=== PATIENT | female | born 1940 | race Caucasian/White ===

== ENCOUNTER 2019-04-21 09:17 | Outpatient (CLI) | payer MEDICARE, SELFPAY ==
[2019-04-21 09:29] LABS: Basophils Absolute Auto 0.02 K/mm3 (0.00-0.10); Basophils Percent Auto 0.4 % (0.0-1.0); Hemoglobin 9.8 g/dL (11.7-13.8); Immature Granulocyte Absolute 0.01 K/mm3 (0.00-0.00); Immature Granulocyte Percent A 0.2 % (0.0-0.0); Lymphocytes Absolute Auto 1.46 K/mm3 (1.10-4.50); Lymphocytes Percent Auto 27.3 % (18.0-42.0); Mean Corpuscular HGB Conc 30.6 g/dL (32.0-36.0); Mean Corpuscular Hemoglobin 23.3 pg (27.0-31.0); Mean Corpuscular Volume 76.2 fL (78.0-102.0); Mean Platelet Volume 8.5 fl (9.2-11.8); Monocytes Absolute Auto 0.41 K/mm3 (0.10-0.90); Monocytes Percent Auto 7.7 % (2.0-11.0); Neutrophils Absolute Auto 3.5 K/mm3 (1.7-7.2); Neutrophils Percent Auto 64.4 % (50.0-70.0); Platelet Count Result 281 K/mm3 (150-420); Red Cell Distribution Width 18.6 % (11.6-14.4); White Blood Count 5.4 K/mm3 (4.8-10.8)
[2019-04-21 09:47] LABS: INR 3.6; Prothrombin Time 35.3 Seconds (9.64-11.0)
[2019-04-21 10:58] LABS: Alanine Aminotransferase 23 U/L (14-59); Albumin Level 3.8 g/dL (3.4-5.0); Alkaline Phosphatase 105 U/L (46-116); Anion Gap 9.8 mmol/L (7-16); Aspartate Amino Transferase 23 U/L (15-37); Bilirubin,Total 0.3 mg/dL (0.00-1.00); Blood Urea Nitrogen 21 mg/dL (7-18); Calcium 8.8 mg/dL (8.5-10.1); Carbon Dioxide 31 mmol/L (21-32); Chloride 102 mmol/L (98-108); Estimated Glomerular Filt Rate 51; Glucose 90 mg/dL (70-99); Osmolality Calculated 291 mOsm/kg (285-295); Potassium 3.8 mmol/L (3.5-5.1); Sodium 139 mmol/L (136-145); Total Protein 7.5 g/dL (6.4-8.2)
== END 2019-04-21 09:18 | disposition home or self-care (01) ==
LOC: CHSLAB 09:19
PROVIDERS: PCP Family Medicine; Visit Provider Family Medicine
DX: Z79.01 Long term (current) use of anticoagulants (principal)
CPT/HCPCS: 36415; 80053; 85025; 85610

== ENCOUNTER 2019-04-25 07:00 | Outpatient (RCR) | payer MEDICARE, SELFPAY ==
[2019-03-25 12:27] LABS: INR 2.4; Prothrombin Time 23.7 Seconds (9.64-11.0)
[2019-04-25 07:22] LABS: INR 1.8; Prothrombin Time 18.6 Seconds (9.64-11.0)
== END 2019-06-23 23:59 | disposition home or self-care (01) ==
LOC: CHSLAB 07:00
DX: Z79.01 Long term (current) use of anticoagulants (principal)
CPT/HCPCS: 36415; 85610

== ENCOUNTER 2019-04-28 07:57 | Outpatient (CLI) | payer MEDICARE, SELFPAY ==
[2019-04-28 08:24] LABS: INR 1.5; Prothrombin Time 15.4 Seconds (9.64-11.0)
[2019-04-28 08:51] LABS: Thyroid Stimulating Hormone Reflex 13.39 u/IU/mL (0.36-3.74)
[2019-04-28 09:14] LABS: Free T4 Free Thyroxine Reflex 0.98 ng/dL (0.76-1.46)
== END 2019-04-28 07:58 | disposition home or self-care (01) ==
LOC: CHSLAB 07:59
PROVIDERS: PCP Family Medicine; Visit Provider Family Medicine
DX: D50.9 Iron deficiency anemia, unspecified (principal); E03.9 Hypothyroidism, unspecified; Z79.01 Long term (current) use of anticoagulants
CPT/HCPCS: 36415; 84439; 84443; 85610

== ENCOUNTER 2019-04-29 08:26 | Outpatient (CLI) | payer MEDICARE, SELFPAY ==
[2019-04-29 08:50] LABS: Occult Blood Negative (Negative)
== END 2019-04-29 08:27 | disposition home or self-care (01) ==
LOC: CHSLAB 08:28
PROVIDERS: PCP Family Medicine; Visit Provider Family Medicine
DX: D50.9 Iron deficiency anemia, unspecified (principal); E03.9 Hypothyroidism, unspecified
CPT/HCPCS: 82274

== ENCOUNTER 2019-06-10 13:30 | Outpatient (CLI) | payer MEDICARE, SELFPAY ==
--- NOTE | ~2019-06-10 | XR_ITS ---
EXAMINATION: XR hip LT 2V w AP pelvis INDICATION: Pain after fall TECHNIQUE: AP view the pelvis and two views of the left hip are obtained. 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 Orthopedic hardware in the femur is intact. Bone alignment is normal. There is no fracture. There is moderate to severe oste oarthritis of the right hip. IMPRESSION: 1. No acute osseous abnormality. Reviewed, dictated and finalized at location A.
== END 2019-06-10 13:31 | disposition home or self-care (01) ==
LOC: CHSIMG 13:35
PROVIDERS: PCP Family Medicine; Visit Provider Family Medicine
DX: G89.29 Other chronic pain (principal)
CPT/HCPCS: 73502

== ENCOUNTER 2019-06-24 11:22 | Outpatient (CLI) | payer MEDICARE, SELFPAY ==
[2019-06-24 11:59] LABS: Prothrombin Time 64.2 Seconds (9.64-11.0)
[2019-06-24 12:11] LABS: INR 6.6
[2019-06-24 12:39] LABS: Estimated Glomerular Filt Rate 54
== END 2019-06-24 11:23 | disposition home or self-care (01) ==
PROVIDERS: PCP Family Medicine
DX: Z79.01 Long term (current) use of anticoagulants (principal)
CPT/HCPCS: 36415; 82565; 85610

== ENCOUNTER 2019-08-08 08:50 | Outpatient (RCR) | payer MEDICARE, SELFPAY ==
--- NOTE | 2019-08-08 10:48 | PTOPEVAL ---
Thank you for referring Haley Rudd to [facility]. Please review, sign, date and return this plan of care BENJIE. I agree with and certify that the following plan of care is medically necessary. Referring Physician Date Admitting Provider: Attending Provider: PHYSICIAN NOT ON STAFF Referring Provider: *PT Outpatient Evaluation Start: 08/08/19 09:10 Freq: Status: Active Protocol: Document 08/08/19 09:13 CONNER (Rec: 08/08/19 09:41 CONNER [id number]) Therapy Assessment Status Assessment Status Assessment Status Evaluation Evaluation Information Problem Diagnosis low back pain Onset 05/16/19 Additional Evaluation Detail Oswestry= 54% disability Subjective Information Pt. reports that around the Query Text:As Reported By Patient/ end of april she fell at home. Family She reports she fell directly onto her low back. She reports that she has had increased pain since her fall. She states that she underwent MRI and xray but is unsure of what the results were. She describes pain across the low back and states that it stays localized to the low back. Pt. states that she underwent surgery on the lumbar spine in the past. she reports that her goal for therapy is to decrease her low back pain. Prior Level of Function Activity Level (Last 3 Months) Occupation retired Hand Dominance Right Activity of Daily Living Ability Independent Indoor/Home Mobility Independent Community Mobility Independent Stairs Ability Independent Functional Cognition (Planning, Shopping Independent , Taking Medications) Cooking Yes Cleaning Yes Laundry Yes Shopping Yes Driving Yes Pain Assessment Timing of Pain Assessment Timing of Pain Assessment Pre-Treatment Pain Scale Pain Scale Used Numeric (1 - 10) Self Report Pain Assessment Lower Back Reported Pain Level 6 Pain Description Aching,Dull Pain Radiation Right Leg Pain Frequency Chronic,Continuous Lowest Pain Intensity 6 Greatest Pain Intensity 8 Pain Aggravating Factors
--- NOTE | 2019-09-05 10:07 | PCPTNOTE ---
patient called and cancelled appt. DEYANIRA
== END 2019-09-07 10:18 | disposition home or self-care (01) ==
LOC: CHSPT 08:50
PROVIDERS: PCP Family Medicine
DX: M54.5 Low back pain (principal)
CPT/HCPCS: 97014; 97110; 97140; 97161; G0283

== ENCOUNTER 2019-09-07 09:58 | Outpatient (RCR) | payer MEDICARE, SELFPAY ==
[2019-06-27 10:26] LABS: INR 1.6; Prothrombin Time 16.7 Seconds (9.64-11.0)
[2019-06-30 10:15] LABS: INR 1.5; Prothrombin Time 15.5 Seconds (9.64-11.0)
[2019-07-04 10:26] LABS: INR 2.2; Prothrombin Time 22.2 Seconds (9.64-11.0)
[2019-07-12 10:47] LABS: INR 3.5; Prothrombin Time 34.2 Seconds (9.64-11.0)
[2019-07-15 11:00] LABS: Prothrombin Time 30.3 Seconds (9.64-11.0)
[2019-07-22 08:16] LABS: Prothrombin Time 49.6 Seconds (9.64-11.0)
[2019-07-22 08:42] LABS: INR 5.1
[2019-08-01 07:30] LABS: INR 1.8
[2019-08-04 07:40] LABS: INR 1.6; Prothrombin Time 16.1 Seconds (9.64-11.0)
[2019-08-11 12:55] LABS: INR 2.1; Prothrombin Time 21.2 Seconds (9.64-11.0)
[2019-08-23 11:20] LABS: INR 2.5; Prothrombin Time 25.4 Seconds (9.64-11.0)
[2019-09-07 10:25] LABS: INR 2.8; Prothrombin Time 28.1 Seconds (9.64-11.0)
== END 2019-09-25 23:59 | disposition home or self-care (01) ==
LOC: CHSLAB 09:58
PROVIDERS: PCP Family Medicine; Visit Provider Family Medicine
DX: Z79.01 Long term (current) use of anticoagulants (principal)
CPT/HCPCS: 36415; 85610

== ENCOUNTER 2019-11-25 09:51 | Outpatient (RCR) | payer MEDICARE, SELFPAY ==
[2019-09-26 07:37] LABS: INR 3.4; Prothrombin Time 33.3 Seconds (9.64-11.0)
[2019-10-11 08:54] LABS: INR 3.3; Prothrombin Time 32.6 Seconds (9.64-11.0)
[2019-10-20 11:03] LABS: INR 2.4; Prothrombin Time 24.1 Seconds (9.64-11.0)
[2019-11-03 09:28] LABS: INR 1.8; Prothrombin Time 18.7 Seconds (9.64-11.0)
[2019-11-16 07:41] LABS: INR 3.2; Prothrombin Time 31.7 Seconds (9.64-11.0)
[2019-11-25 10:17] LABS: INR 2.7; Prothrombin Time 26.8 Seconds (9.64-11.0)
== END 2019-12-25 23:59 | disposition home or self-care (01) ==
LOC: CHSLAB 09:51
PROVIDERS: PCP Family Medicine; Visit Provider Family Medicine
DX: Z79.01 Long term (current) use of anticoagulants (principal)
CPT/HCPCS: 36415; 85610

== ENCOUNTER 2019-11-29 13:57 | Outpatient (CLI) | payer MEDICARE, SELFPAY ==
--- NOTE | ~2019-11-29 | XR_ITS ---
EXAMINATION: XR knee RT min 4V EXAM DATE: 11/29/2019 14:37 INDICATION: Right knee pain. TECHNIQUE: Right knee frontal, crosstable lateral, orthogonal oblique projections for interpretation . [place] projection. There are no prior studies for comparison. FINDINGS: There is moderate right lateral tibiofemoral compartment, mild to moderate patellofemoral c ompartment primary osteoarthritis. There are no acute fractures or dislocations identified. There is no subcutaneous gas. There is small joint effusion. There are no radiopaque foreign bodies. IMPRESSION: Moderate right knee osteoarthritis, lateral tibiofemoral compartment most affected. Small effusion. Reviewed, dictated and finalized at location A. IMPRESSION: Moderate right knee osteoarthritis, lateral tibiofemoral compartmen t most affected. Small effusion.
== END 2019-11-29 13:58 | disposition home or self-care (01) ==
LOC: CHSIMG 13:59
PROVIDERS: PCP Family Medicine; Visit Provider Family Medicine
DX: M25.561 Pain in right knee (principal)
CPT/HCPCS: 73564

== ENCOUNTER 2019-12-09 07:30 | Outpatient (CLI) | payer MEDICARE, SELFPAY ==
[2019-12-09 08:02] LABS: INR 2.2; Prothrombin Time 22.2 Seconds (9.64-11.0)
[2019-12-09 09:03] LABS: Alanine Aminotransferase 25 U/L (14-59); Albumin Level 3.9 g/dL (3.4-5.0); Alkaline Phosphatase 105 U/L (46-116); Anion Gap 6 mmol/L (8-16); Aspartate Amino Transferase 19 U/L (15-37); Bilirubin,Total 0.3 mg/dL (0.00-1.00); Blood Urea Nitrogen 26 mg/dL (7-18); Calcium 9.1 mg/dL (8.5-10.1); Carbon Dioxide 32 mmol/L (21-32); Chloride 102 mmol/L (98-108); Estimated Glomerular Filt Rate 59; Glucose 93 mg/dL (70-99); Osmolality Calculated 294 mOsm/kg (285-295); Potassium 3.5 mmol/L (3.5-5.1); Sodium 140 mmol/L (136-145); Total Protein 7.3 g/dL (6.4-8.2)
== END 2019-12-09 07:31 | disposition home or self-care (01) ==
LOC: CHSLAB 07:32
PROVIDERS: PCP Family Medicine; Visit Provider Family Medicine
DX: E03.9 Hypothyroidism, unspecified (principal); I10 Essential (primary) hypertension; Z79.01 Long term (current) use of anticoagulants
CPT/HCPCS: 36415; 80053; 84439; 84443; 85610

== ENCOUNTER 2020-01-04 08:54 | Outpatient (RCR) | payer MEDICARE, SELFPAY ==
--- NOTE | 2020-01-04 09:57 | PTOPEVAL ---
Thank you for referring Haley Rudd to [facility].? The patient is scheduled to be seen for therapy? __3__x/week for 12 visits. Please review, sign, date and return this plan of care BENJIE. I agree with and certify that the following plan of care is medically necessary. Referring Physician Date Admitting Provider: Attending Provider: PHYSICIAN NOT ON STAFF Referring Provider: *PT Outpatient Evaluation Start: 01/04/20 08:56 Freq: Status: Active Protocol: Document 01/04/20 08:57 CONNER (Rec: 01/04/20 09:57 CONNER [email or web address]) Therapy Assessment Status Assessment Status Assessment Status Evaluation Evaluation Information Problem Diagnosis bilateral knee pain, right hip pain, lumbar stenosis, left hip pain Subjective Information Pt. describes general pain Query Text:As Reported By Patient/ throughout the low back and l. Family e. that has been on/off for years. She reports that she cannot sit or stand for extended periods of time. She notes that she can stand for about 10 minutes before pain becomes too intense and she needs to sit. She reports that sitting is less painful than standing. She reports that pain will wake her at night frequently. She reports that her goal for therapy is to be able to stand longer and get around without pain. Prior Level of Function Activity Level (Last 3 Months) Occupation retired Hand Dominance Right Activity of Daily Living Ability Independent Indoor/Home Mobility Independent Community Mobility Independent Stairs Ability Independent Functional Cognition (Planning, Shopping Independent , Taking Medications) Cooking Yes Cleaning Yes Laundry Yes Shopping Yes Driving Yes Pain Assessment Pain Scale Pain Scale Used Numeric (1 - 10) Self Report Pain Assessment Generalized Reported Pain Level 4 Pain Description Aching,Burning Pain Frequency Continuous Lowest Pain Intensity 4 Greatest Pain Intensity 7 Pain Aggravating Factors Exercise/Activity,Prolonged Position,Sitting,Walking,
== END 2020-02-02 18:00 | disposition home or self-care (01) ==
LOC: CHSPT 08:54
PROVIDERS: PCP Family Medicine
DX: M25.562 Pain in left knee (principal); M25.561 Pain in right knee; M16.11 Unilateral primary osteoarthritis, right hip; M48.062 Spinal stenosis, lumbar region with neurogenic claudication; M25.552 Pain in left hip
CPT/HCPCS: 36415; 80053; 84439; 84443; 85610; 97014; 97110; 97161; 97530; G0283

== ENCOUNTER 2020-01-09 10:08 | Outpatient (CLI) | payer MEDICARE, SELFPAY ==
[2020-01-09 11:28] LABS: Alanine Aminotransferase 29 U/L (14-59); Alkaline Phosphatase 96 U/L (46-116); Anion Gap 9 mmol/L (8-16); Aspartate Amino Transferase 24 U/L (15-37); Bilirubin,Total 0.3 mg/dL (0.00-1.00); Blood Urea Nitrogen 20 mg/dL (7-18); Calcium 9.4 mg/dL (8.5-10.1); Carbon Dioxide 32 mmol/L (21-32); Chloride 100 mmol/L (98-108); Estimated Glomerular Filt Rate 59; Glucose 83 mg/dL (70-99); Osmolality Calculated 293 mOsm/kg (285-295); Potassium 3.9 mmol/L (3.5-5.1); Sodium 141 mmol/L (136-145); Total Protein 7.5 g/dL (6.4-8.2)
[2020-01-09 11:45] LABS: Thyroid Stimulating Hormone Reflex 5.04 u/IU/mL (0.36-3.74)
[2020-01-09 11:46] LABS: Free T4 Free Thyroxine Reflex 1.41 ng/dL (0.76-1.46)
== END 2020-01-09 10:09 | disposition home or self-care (01) ==
LOC: CHSLAB 10:10
PROVIDERS: PCP Family Medicine; Visit Provider Family Medicine
DX: E03.9 Hypothyroidism, unspecified (principal); I10 Essential (primary) hypertension
CPT/HCPCS: 36415; 80053; 84439; 84443

== ENCOUNTER 2020-02-01 10:50 | Outpatient (RCR) | payer MEDICARE, SELFPAY ==
[2020-01-06 08:07] LABS: INR 1.9; Prothrombin Time 18.8 Seconds (9.64-11.0)
[2020-02-01 11:13] LABS: Prothrombin Time 21.3 Seconds (9.50-12.10)
== END 2020-04-05 23:59 | disposition home or self-care (01) ==
LOC: CHSLAB 10:50
PROVIDERS: PCP Family Medicine; Visit Provider Family Medicine
DX: Z79.01 Long term (current) use of anticoagulants (principal)
CPT/HCPCS: 36415; 85610

== ENCOUNTER 2020-03-02 09:32 | Outpatient (CLI) | payer MEDICARE, SELFPAY ==
[2020-03-02 09:44] LABS: Basophils Absolute Auto 0.05 K/mm3 (0.00-0.10); Basophils Percent Auto 0.8 % (0.0-1.0); Hematocrit 32.1 % (35.0-42.0); Hemoglobin 9.7 g/dL (11.7-13.8); Immature Granulocyte Absolute 0.02 K/mm3 (0.00-0.00); Immature Granulocyte Percent A 0.3 % (0.0-0.0); Lymphocytes Absolute Auto 1.61 K/mm3 (1.10-4.50); Lymphocytes Percent Auto 26.2 % (18.0-42.0); Mean Corpuscular HGB Conc 30.2 g/dL (32.0-36.0); Mean Corpuscular Volume 76.1 fL (78.0-102.0); Mean Platelet Volume 8.6 fl (9.2-11.8); Monocytes Absolute Auto 0.39 K/mm3 (0.10-0.90); Monocytes Percent Auto 6.4 % (2.0-11.0); Neutrophils Absolute Auto 4.1 K/mm3 (1.7-7.2); Neutrophils Percent Auto 66.3 % (50.0-70.0); Platelet Count Result 293 K/mm3 (150-420); Red Blood Count 4.22 M/mm3 (4.20-5.40); Red Cell Distribution Width 19.9 % (11.6-14.4); White Blood Count 6.1 K/mm3 (4.8-10.8)
[2020-03-02 11:08] LABS: Alanine Aminotransferase 24 U/L (14-59); Alkaline Phosphatase 95 U/L (46-116); Anion Gap 8 mmol/L (8-16); Aspartate Amino Transferase 20 U/L (15-37); Bilirubin,Total 0.5 mg/dL (0.00-1.00); Blood Urea Nitrogen 22 mg/dL (7-18); Calcium 9.2 mg/dL (8.5-10.1); Carbon Dioxide 30 mmol/L (21-32); Chloride 101 mmol/L (98-108); Estimated Glomerular Filt Rate 48; Ferritin 8 ng/mL (8-252); Free T4 Free Thyroxine 1.22 ng/dL (0.76-1.46); Glucose 133 mg/dL (70-99); Magnesium 1.5 mg/dL (1.8-2.4); Osmolality Calculated 293 mOsm/kg (285-295); Potassium 3.8 mmol/L (3.5-5.1); Sodium 139 mmol/L (136-145); Thyroid Stimulating Hormone 8.13 uIU/mL (0.36-3.74); Total Protein 7.5 g/dL (6.4-8.2); Vitamin B12 155 pg/mL (193-986)
[2020-03-08 02:45] LABS: Vitamin D 25 Hydroxy 23 ng/mL (30-100)
== END 2020-03-02 09:33 | disposition home or self-care (01) ==
LOC: CHSLAB 09:34
PROVIDERS: PCP Family Medicine; Visit Provider Internal Medicine Rheumatology
DX: R53.83 Other fatigue (principal); E55.9 Vitamin D deficiency, unspecified; D50.9 Iron deficiency anemia, unspecified; Z51.81 Encounter for therapeutic drug level monitoring
CPT/HCPCS: 36415; 80053; 82306; 82607; 82728; 82746; 83735; 84439; 84443; 85025

== ENCOUNTER 2020-03-12 09:17 | Outpatient (CLI) | payer MEDICARE, SELFPAY ==
[2020-03-12 10:37] LABS: Thyroid Stimulating Hormone Reflex 7.08 u/IU/mL (0.36-3.74)
[2020-03-12 11:29] LABS: Free T4 Free Thyroxine Reflex 1.18 ng/dL (0.76-1.46)
== END 2020-03-12 09:18 | disposition home or self-care (01) ==
LOC: CHSLAB 09:18
PROVIDERS: PCP Family Medicine; Visit Provider Family Medicine
DX: E03.9 Hypothyroidism, unspecified (principal)
CPT/HCPCS: 36415; 84439; 84443

== ENCOUNTER 2020-04-05 12:14 | Outpatient (CLI) | payer MEDICARE, SELFPAY ==
--- NOTE | 2020-04-05 12:30 | ECG_ITS ---
Measurements Intervals [place] Rate: 82 P: 39 CA: 174 QRS: 3 QRSD: 91 T: 30 QT: 373 QTc: 437 Interpretive Statements SINUS RHYTHM DELAYED PRECORDIAL R/S TRANSITION MINIMAL Q WAVES- HIGH LATERAL LEADS BORDERLINE ECG Electronically Signed On 04-05-2020 12:40:47 PROBE OPERATOR by Danielito Leon D.O.
== END 2020-04-05 12:15 | disposition home or self-care (01) ==
LOC: CHSLAB 12:17
PROVIDERS: PCP Family Medicine; Visit Provider Family Medicine
DX: Z01.818 Encounter for other preprocedural examination (principal)
CPT/HCPCS: 93005

== ENCOUNTER 2020-04-08 08:14 | Outpatient (CLI) | payer MEDICARE, SELFPAY | END 2020-04-08 08:15 | disposition home or self-care (01) | LOC: CHSLAB 08:16 | PROVIDERS: PCP Family Medicine; Visit Provider Family Medicine | DX: Z01.818 Encounter for other preprocedural examination (principal) | CPT/HCPCS: 87081 ==

== ENCOUNTER 2020-04-20 09:45 | Outpatient (RCR) | payer MEDICARE, SELFPAY ==
--- NOTE | 2020-04-19 11:18 | PTOPEVAL ---
Thank you for referring Haley Rudd to [facility] [place].? The patient is scheduled to be seen for therapy? ____x/week for ___ weeks. Please review, sign, date and return this plan of care BENJIE. I agree with and certify that the following plan of care is medically necessary. Referring Physician Date Admitting Provider: Attending Provider: BIRD SINGH Referring Provider: ASHLEY Outpatient Evaluation Start: 04/19/20 10:01 Freq: Status: Active Protocol: Document 04/19/20 10:01 ACR (Rec: 04/19/20 11:06 ACR [email or web address]) Therapy Assessment Status Assessment Status Assessment Status Evaluation Evaluation Information Problem Diagnosis R knee TKA Onset 04/17/20 Subjective Information Patient states she got a knee Query Text:As Reported By Patient/ replacement on the R on 04/17/20 Family and was hoping to be a swing bed, but her doctor would not allow it. Patient is having difficulty getting in and out of the car, standing up, going up and down the stairs, and walking for prolonged times. Patient reports she used a rollator before the surgery due to her knee hurting her so bad and used a cane before that. Patient states she is icing and elevating. She is also taking tramodal and hydrocodone for the pain. Prior Level of Function Activity Level (Last 3 Months) Occupation retired Hand Dominance Right Activity of Daily Living Ability Independent Indoor/Home Mobility Independent Community Mobility Independent Stairs Ability Independent Functional Cognition (Planning, Shopping Independent , Taking Medications) Cooking Yes Cleaning Yes Laundry Yes Shopping Yes Driving Yes Pain Assessment Timing of Pain Assessment Timing of Pain Assessment Assessment Pain Scale Pain Scale Used Numeric (1 - 10) Self Report Pain Assessment Right Knee(s) Reported Pain Level 9 Pain Description Aching,Dull Lowest Pain Intensity 7 Greatest Pain Intensity 10 Pain Score Pain Score 9: Self Report Interventions Used Interventions Used By Clinicians Activity or ADL's,Education, Exerci
--- NOTE | 2020-05-21 12:03 | PTOPEVAL ---
Thank you for referring Haley Rudd to [facility].? The patient is scheduled to be seen for therapy? ____x/week for ___ weeks. Please review, sign, date and return this plan of care BENJIE. I agree with and certify that the following plan of care is medically necessary. Referring Physician Date Admitting Provider: Attending Provider: BIRD SINGH Referring Provider: ASHLEY Outpatient Evaluation Start: 04/19/20 10:01 Freq: Status: Active Protocol: Document 05/21/20 11:08 [facility] (Rec: 05/21/20 12:02 [facility] [id number]) Therapy Assessment Status Assessment Status Assessment Status Re-evaluation Evaluation Information Problem Diagnosis R knee TKA Onset 04/17/20 Pain Assessment Timing of Pain Assessment Timing of Pain Assessment Assessment Pain Scale Pain Scale Used Numeric (1 - 10) Self Report Pain Assessment Right Knee(s) Reported Pain Level 7 Greatest Pain Intensity 10 Additional Pain Comments knee jt and lateral R knee pain Pain Score Pain Score 7: Self Report Interventions Used Interventions Used By Clinicians Activity or ADL's,Education, Exercise,Ice Lower Extremity Range of Motion Knee Range of Motion Right Knee Flexion Range of Motion - Active 85 Knee Flexion Range of Motion - Passive 106 Knee Extension Range of Motion - Active -7 Query Text: Knee Extension Range of Motion - Passive -2 Knee Range of Motion Comments patient reports pain in the lateral R knee with knee flexion. Palpation Assessment Palpation Palpation tenderness to palpation over the lateral R knee jt line. Gait Assessment Gait Assessment Additional Ambulation Comments patient ambulates into the clinic with a fww. she reports she has not attempted ambulation with a cane yet due to pain in the R knee. patient ambulates with stopping between steps with ambulation with cane, as well as, stance time and stride length of the R LE. General Exercise General Exercises Exercise Description - heel prop x 10 minutes Query Text:Record Sets, Reps, - heel slide with belt 5 Resistance, and Position minutes - PROM into knee flexion 5 minutes - passive overpressure of the R knee extension 5 minutes
--- NOTE | 2020-05-21 12:08 | PTOPEVAL ---
Thank you for referring Haley Rudd to [facility] [place].? The patient is scheduled to be seen for therapy? ____x/week for ___ weeks. Please review, sign, date and return this plan of care BENJIE. I agree with and certify that the following plan of care is medically necessary. Referring Physician Date Admitting Provider: Attending Provider: BIRD SINGH Referring Provider: ASHLEY Outpatient Evaluation Start: 04/19/20 10:01 Freq: Status: Active Protocol: Document 05/21/20 11:08 [facility] (Rec: 05/21/20 12:02 [facility] [id number]) Therapy Assessment Status Assessment Status Assessment Status Re-evaluation Evaluation Information Problem Diagnosis R knee TKA Onset 04/17/20 Pain Assessment Timing of Pain Assessment Timing of Pain Assessment Assessment Pain Scale Pain Scale Used Numeric (1 - 10) Self Report Pain Assessment Right Knee(s) Reported Pain Level 7 Greatest Pain Intensity 10 Additional Pain Comments knee jt and lateral R knee pain Pain Score Pain Score 7: Self Report Interventions Used Interventions Used By Clinicians Activity or ADL's,Education, Exercise,Ice Lower Extremity Range of Motion Knee Range of Motion Right Knee Flexion Range of Motion - Active 85 Knee Flexion Range of Motion - Passive 106 Knee Extension Range of Motion - Active -7 Query Text: Knee Extension Range of Motion - Passive -2 Knee Range of Motion Comments patient reports pain in the lateral R knee with knee flexion. Lower Extremity Muscle Strength Testing Knee Strength Right Knee Flexion Strength 3+ Fair + Knee Extension Strength 4 Good Palpation Assessment Palpation Palpation tenderness to palpation over the lateral R knee jt line. Gait Assessment Gait Assessment Additional Ambulation Comments patient ambulates into the clinic with a fww. she reports she has not attempted ambulation with a cane yet due to pain in the R knee. patient ambulates with stopping between steps with ambulation with cane, as well as, stance time and stride length of the R LE. General Exercise General Exercises Exercise Description - heel prop x 10 minutes Query Text:Record Sets, Reps, - heel slide with belt 5 Resistance, and Position minutes - PROM into knee flexion 5
--- NOTE | 2020-06-29 12:43 | PTOPEVAL ---
Thank you for referring Haley Rudd to [facility].? The patient is scheduled to be seen for therapy? ____x/week for ___ weeks. Please review, sign, date and return this plan of care BENJIE. I agree with and certify that the following plan of care is medically necessary. Referring Physician Date Admitting Provider: Attending Provider: BIRD SINGH Referring Provider: ASHLEY Outpatient Evaluation Start: 04/19/20 10:01 Freq: Status: Active Protocol: Document 06/29/20 11:01 ACR (Rec: 06/29/20 12:05 ACR [email or web address]) Therapy Assessment Status Assessment Status Assessment Status Discharge Evaluation Information Problem Diagnosis R TKA Onset 04/17/20 Subjective Information Patient states her R knee is Query Text:As Reported By Patient/ not the one bothering her, it Family is her L knee. She states that if her L knee wasn't bothering her so much, she would be able to do everything that she needs to do. Patient states she is driving. She states she is going back to the MD on the and is going to see if her L knee can be checked out. Pain Assessment Timing of Pain Assessment Timing of Pain Assessment Assessment Pain Scale Pain Scale Used Numeric (1 - 10) Self Report Pain Assessment Right Knee(s) Reported Pain Level 3 Greatest Pain Intensity 6 Pain Score Pain Score 3: Self Report Interventions Used Interventions Used By Clinicians Activity or ADL's,Education, Electrical Stimulation, Exercise,Ice Lower Extremity Range of Motion Knee Range of Motion Right Knee Flexion Range of Motion - Active 105 Knee Flexion Range of Motion - Passive 115 Knee Extension Range of Motion - Active -3 Query Text: Lower Extremity Muscle Strength Testing Knee Strength Right Knee Flexion Strength 4+ Good + Knee Extension Strength 4+ Good + Palpation Assessment Palpation Palpation Patient continues to be tender on the posterior knee and lateral joint line. R knee joint line: 48cm L knee joint line: 45 cm Gait Assessment Gait Assessment Additional Ambulation Comments patient ambulates into clinic with straight cane. She demonstrates decreased stance time on the L, decreased heel
== END 2020-06-29 14:18 | disposition home or self-care (01) ==
LOC: CHSPT 09:45
PROVIDERS: PCP Family Medicine
DX: M25.561 Pain in right knee (principal); M17.11 Unilateral primary osteoarthritis, right knee
CPT/HCPCS: 36415; 85610; 97014; 97016; 97110; 97140; 97161; 97530; G0283

== ENCOUNTER 2020-07-02 08:23 | Outpatient (RCR) | payer MEDICARE, SELFPAY ==
[2020-04-20 10:25] LABS: INR 1.1; Prothrombin Time 11.4 Seconds (9.50-12.10)
[2020-04-25 10:57] LABS: INR 1.5; Prothrombin Time 16.1 Seconds (9.50-12.10)
[2020-04-30 13:23] LABS: INR 2.6; Prothrombin Time 26.1 Seconds (9.50-12.10)
[2020-05-07 15:15] LABS: Prothrombin Time 49.8 Seconds (9.50-12.10)
[2020-05-16 14:37] LABS: INR 1.6; Prothrombin Time 17.1 Seconds (9.50-12.10)
[2020-07-02 08:45] LABS: INR 2.2; Prothrombin Time 22.2 Seconds (9.50-12.10)
== END 2020-07-19 23:59 | disposition home or self-care (01) ==
LOC: CHSLAB 08:23
PROVIDERS: PCP Family Medicine; Visit Provider Family Medicine
DX: Z79.01 Long term (current) use of anticoagulants (principal)
CPT/HCPCS: 36415; 85610

== ENCOUNTER 2020-07-13 08:07 | Outpatient (CLI) | payer MEDICARE, SELFPAY ==
[2020-07-13 09:34] LABS: Anion Gap 7 mmol/L (8-16); Blood Urea Nitrogen 19 mg/dL (7-18); Calcium 9.2 mg/dL (8.5-10.1); Carbon Dioxide 31 mmol/L (21-32); Chloride 101 mmol/L (98-108); Estimated Glomerular Filt Rate 47; Glucose 95 mg/dL (70-99); Osmolality Calculated 290 mOsm/kg (285-295); Sodium 139 mmol/L (136-145)
[2020-07-13 09:41] LABS: Free T4 Free Thyroxine Reflex 1.18 ng/dL (0.76-1.46); Thyroid Stimulating Hormone Reflex 4.03 u/IU/mL (0.36-3.74)
== END 2020-07-13 08:08 | disposition home or self-care (01) ==
LOC: CHSLAB 08:09
PROVIDERS: PCP Family Medicine; Visit Provider Family Medicine
DX: E03.9 Hypothyroidism, unspecified (principal); I10 Essential (primary) hypertension
CPT/HCPCS: 36415; 80048; 84439; 84443

== ENCOUNTER 2020-07-25 10:07 | Outpatient (CLI) | payer MEDICARE, SELFPAY ==
--- NOTE | ~2020-07-25 | DEXA_ITS ---
Bone Density Report Name: Haley Rudd Age: 80 Sex: Female Ethnicity: White Date of : 1940 Indication: osteopenia; parental hip fracture; asthma or emphysema; hysterectomy; Referring Provider: Samantha, Chary Mcneill Study: Bone densitometry was performed. Exam Date: July 25, 2020 Accession number: [id number] Bone Density: Region BMD T-score Z-score Classification AP Spine(L1, L2) 0.862 -1.1 1.4 Osteopenia Femoral Neck (Right) 0.670 -1.6 0.7 Osteopenia Total Hip (Right) 0.686 -2.1 0.0 Osteopenia World Health Organization criteria for BMD impression classify patients as: Normal (T-score at or above -1.0), Osteopenia (T-score between -1.0 and -2.5), or Osteoporosis (T-score at or below -2.5). 10-year Fracture Risk(1): Major Osteoporotic Fracture 22% Hip Fracture 12% Reported Risk Factors: [place] (), Neck BMD=0.670, BMI=37.4, parental fracture (1) FRAX(R) Version 3.08. Fracture probability calculated for an untreated patient. Fracture probability may be lower if the patient has received treatment. Previous Exams: Region Exam Age BMD T-score BMD Change BMD Change Date g/cm2 vs Baseline vs Previous Total Hip(Right) 07/25/2020 80 0.686 -2.1 -0.001 (-0.1%) -0.001 (-0.1%) 06/14/2014 73 0.687 -2.1 *Denotes significance at 95% confidence level, LSC for Total Hip = 0.027 g/cm2 # Denotes dissimilar scan types or analysis methods Clinical Information Provided by Patient: Parent has had a hip fracture Has the following medical conditions: Asthma or Emphysema, Hysterectomy No regular weight bearing exercise Number of children 3 Impression: The patient has low bone mass, based on the Right Total Hip T-score. The patient has an estimated ten-year risk of hip fracture of 12% and an estimated ten-year risk of major fracture of 22%, based on the WHO FRAX algorithm. The patient has risk factors, including: parental hip fracture. No significant bone loss was observed. Discussion: BONE DENSITY IS LOW AT ONE OR MORE SKELETAL SITES. THE PATIENT'S BMD AND CLINICAL RISK FACTORS CONTRIBUTE TO THIS PATIENT'S HIGH RISK OF FRACTURE. This patient's lowest T-score is low at one or more skeletal sites. It meets the World Health Organization's (WHO) criteria for ?low bone mass? (T-score between -1.0 and -2.5). The patient's 10-year risk of hip fracture and 10 year risk of a major osteoporotic fracture as calculated by FRAX exceeds the threshold where pharmacological therapy is recommended by the National Osteoporosis Foundation (NOF). However, all treatment decisio
--- NOTE | ~2020-07-25 | MM_ITS ---
EXAMINATION: MM screening [facility] BI w gaurang HISTORY: Screening mammogram TECHNIQUE: Craniocaudal and mediolateral oblique 3-D tomosynthesis images were obtained and synthetic 2-D images were generated. CAD analysis was submitted and interpreted. COMPARISON: 08/06/2018 bilateral diagnostic digital mammogram 07/21/2017, 11/02/2014 bilateral digital mammogram BREAST PARENCHYMAL COMPOSITION: There are scattered areas of fibroglandular density. FINDINGS: Status post reportedly benign right breast biopsy. Loss of the right breast. No nipple shadow is identified. There is no evidence of suspicious mass, ca lcification, or architectural distortion to suggest malignancy in either breast. There has been no bryson spicious interval change. IMPRESSION: 1. No mammographic evidence of malignancy. 2. Recommend routine screening mammography in one year. BI-RADS Category 2: Benign finding(s). Reviewed, dictated and finalized at location A.
== END 2020-07-25 10:08 | disposition home or self-care (01) ==
LOC: CHSIMG 10:08
PROVIDERS: PCP Family Medicine; Visit Provider Family Medicine
DX: Z12.31 Encounter for screening mammogram for malignant neoplasm of breast (principal); Z78.0 Asymptomatic menopausal state
CPT/HCPCS: 77063; 77067; 77080

== ENCOUNTER 2020-09-04 08:53 | Outpatient (RCR) | payer MEDICARE, SELFPAY ==
--- NOTE | 2020-09-04 09:55 | PTOPEVAL ---
Thank you for referring Haley Rudd to [facility].? The patient is scheduled to be seen for therapy? ____x/week for ___ weeks. Please review, sign, date and return this plan of care BENJIE. I agree with and certify that the following plan of care is medically necessary. Referring Physician Date Admitting Provider: Attending Provider: Anish San Referring Provider: ASHLEY Outpatient Evaluation Start: 09/04/20 08:55 Freq: Status: Active Protocol: Document 09/04/20 08:58 J (Rec: 09/04/20 09:54 Shaye [email or web address]) Therapy Assessment Status Assessment Status Assessment Status Evaluation Evaluation Information Problem Diagnosis L hip pain Onset 08/28/20 Additional Evaluation Detail LEFS = 80% functionally declined Subjective Information patient reports she has been Query Text:As Reported By Patient/ having pain in the L hip for Family about 3 weeks. she reports her pain will go along the side of her hip and up into her back. she reports the pain initially started running down the whole side of her L leg. she reports she has ahd x-rays of the L hip and reports no findings for her pain. she reports she has tried no injections to the hip. she reports she has increased pain with bending over to reach for things, walking, standing. she reports she is able to stand or walk for only 10 minutes. Prior Level of Function Comments Additional Prior Level of Function prior to the beginning of the Comments month, patient reports she always had some pain along the side of the L hip due to her previous surgeries. she reports she has been seeing [employer] for L sided lower back pain. patient has had a penelope in the L hip, and then had the L hip replaced. patient reports her last L hip surgery was back in 2008 or 2009. Pain Assessment Timing of Pain Assessment Timing of Pain Assessment Assessment Pain Scale Pain Scale Used Numeric (1 - 10) Self Repor
--- NOTE | 2020-09-27 09:10 | PTOPEVAL ---
Thank you for referring Haley Rudd to [facility].? The patient is scheduled to be seen for therapy? ____x/week for ___ weeks. Please review, sign, date and return this plan of care BENJIE. I agree with and certify that the following plan of care is medically necessary. Referring Physician Date Admitting Provider: Attending Provider: Anish San Referring Provider: ASHLEY Outpatient Evaluation Start: 09/04/20 08:55 Freq: Status: Active Protocol: Document 09/27/20 08:05 [facility] (Rec: 09/27/20 09:08 [facility] [email or web address]) Therapy Assessment Status Assessment Status Assessment Status Discharge Evaluation Information Problem Diagnosis L hip pain Onset 08/28/20 Additional Evaluation Detail LEFS = 72% functionally declined Subjective Information patient reports her back, L Query Text:As Reported By Patient/ hip, and L knee are very sore Family today. she reports lately she has had increased pain in the lower back and L knee compared to the L hip. she reports she does do exercises/HEP at home . she reports her follow up with the MD is on 10/11/20. Pain Assessment Timing of Pain Assessment Timing of Pain Assessment Assessment Pain Scale Pain Scale Used Numeric (1 - 10) Self Report Pain Assessment Left Knee(s) Reported Pain Level 6 Lower Back Reported Pain Level 7 Left Hip(s) Reported Pain Level 5 Pain Score Pain Score 7,5,6: Self Report Interventions Used Interventions Used By Clinicians Activity or ADL's,Education, Electrical Stimulation, Exercise,Heat Cervical and Lumbar ROM Lumbar ROM Lumbar Flexion Active [place] Query Text:Hands to: Lumbar Extension (0-40) 10 Query Text:Active in Degrees Lumbar Lateral Flexion Right (0-40) 15 Query Text:Active in Degrees Lumbar Lateral Flexion Left (0-40) 15 Query Text:Active in Degrees Lower Extremity Range of Motion Hip Range of Motion Left Hip Range of Motion Comments 100 degrees active hip flex 10 degrees hip IR 30 degrees hip ER Right Hip Range of Motion Comments patient presents with limited to 0 arom or prom L hip IR. patient presents with 100 degrees passive hip flex and 40 degrees hip ER. Lower Extremity Muscle Strength Testing Hip Strength Right Hip Flexi
== END 2020-09-27 17:29 | disposition home or self-care (01) ==
LOC: CHSPT 08:53
DX: M25.552 Pain in left hip (principal)
CPT/HCPCS: 97014; 97110; 97140; 97161; G0283

== ENCOUNTER 2020-09-04 09:55 | Outpatient (RCR) | payer MEDICARE, SELFPAY ==
[2020-08-06 08:41] LABS: INR 2.5; Prothrombin Time 25.1 Seconds (9.50-12.10)
[2020-09-04 10:16] LABS: INR 2.2; Prothrombin Time 22.4 Seconds (9.50-12.10)
== END 2020-11-04 23:59 | disposition home or self-care (01) ==
LOC: CHSLAB 09:55
PROVIDERS: PCP Family Medicine; Visit Provider Family Medicine
DX: Z79.01 Long term (current) use of anticoagulants (principal)
CPT/HCPCS: 36415; 85610

== ENCOUNTER 2020-11-03 07:49 | Outpatient (CLI) | payer MEDICARE, SELFPAY ==
[2020-11-03 08:02] LABS: Basophils Absolute Auto 0.04 K/mm3 (0.00-0.10); Basophils Percent Auto 0.8 % (0.0-1.0); Eosinophils Absolute Auto 0.05 K/mm3 (0.02-0.50); Hematocrit 45.3 % (35.0-42.0); Hemoglobin 14.9 g/dL (11.7-13.8); Immature Granulocyte Absolute 0.01 K/mm3 (0.00-0.00); Immature Granulocyte Percent A 0.2 % (0.0-0.0); Lymphocytes Absolute Auto 1.33 K/mm3 (1.10-4.50); Lymphocytes Percent Auto 25.9 % (18.0-42.0); Mean Corpuscular HGB Conc 32.9 g/dL (32.0-36.0); Mean Corpuscular Hemoglobin 33.9 pg (27.0-31.0); Mean Corpuscular Volume 103.2 fL (78.0-102.0); Monocytes Absolute Auto 0.38 K/mm3 (0.10-0.90); Monocytes Percent Auto 7.4 % (2.0-11.0); Neutrophils Absolute Auto 3.3 K/mm3 (1.7-7.2); Neutrophils Percent Auto 64.7 % (50.0-70.0); Platelet Count Result 217 K/mm3 (150-420); Red Blood Count 4.39 M/mm3 (4.20-5.40); Red Cell Distribution Width 14.6 % (11.6-14.4); White Blood Count 5.1 K/mm3 (4.8-10.8)
[2020-11-03 08:19] LABS: Prothrombin Time 20.5 Seconds (9.50-12.10)
[2020-11-03 08:49] LABS: Alanine Aminotransferase 39 U/L (14-59); Albumin Level 4.1 g/dL (3.4-5.0); Alkaline Phosphatase 99 U/L (46-116); Anion Gap 10 mmol/L (8-16); Aspartate Amino Transferase 30 U/L (15-37); Bilirubin,Total 0.5 mg/dL (0.00-1.00); Blood Urea Nitrogen 26 mg/dL (7-18); Calcium 8.9 mg/dL (8.5-10.1); Carbon Dioxide 32 mmol/L (21-32); Chloride 104 mmol/L (98-108); Cholesterol 237 mg/dL (0-200); Estimated Glomerular Filt Rate 44; Free T4 Free Thyroxine 1.15 ng/dL (0.76-1.46); Glucose 101 mg/dL (70-99); HDL Direct 68 mg/dL (40-60); LDL Cholesterol Calculated 153 mg/dL (<130); Osmolality Calculated 306 mOsm/kg (285-295); Potassium 3.6 mmol/L (3.5-5.1); Sodium 146 mmol/L (136-145); Thyroid Stimulating Hormone 6.51 uIU/mL (0.36-3.74); Total Protein 7.5 g/dL (6.4-8.2); Triglycerides 81 mg/dL (0-150)
== END 2020-11-03 07:50 | disposition home or self-care (01) ==
PROVIDERS: PCP Family Medicine; Visit Provider Family Medicine
DX: Z79.01 Long term (current) use of anticoagulants (principal); D50.9 Iron deficiency anemia, unspecified; I10 Essential (primary) hypertension; E03.9 Hypothyroidism, unspecified
CPT/HCPCS: 36415; 80053; 80061; 84439; 84443; 85025; 85610

== ENCOUNTER 2020-11-09 11:34 | Outpatient (CLI) | payer MEDICARE, SELFPAY | END 2020-11-09 11:35 | disposition home or self-care (01) | LOC: CHSLAB 11:40 | PROVIDERS: PCP Family Medicine | DX: Z01.812 Encounter for preprocedural laboratory examination (principal) | CPT/HCPCS: 87081 ==

== ENCOUNTER 2020-12-21 07:30 | Outpatient (RCR) | payer MEDICARE, SELFPAY ==
[2020-10-04 10:08] LABS: INR 2.2; Prothrombin Time 22.3 Seconds (9.50-12.10)
[2020-12-06 10:22] LABS: INR 3.3; Prothrombin Time 33.1 Seconds (9.50-12.10)
[2020-12-21 07:50] LABS: INR 2.6
== END 2021-01-02 23:59 | disposition home or self-care (01) ==
LOC: CHSLAB 07:30
PROVIDERS: PCP Family Medicine; Visit Provider Family Medicine
DX: Z79.01 Long term (current) use of anticoagulants (principal)
CPT/HCPCS: 36415; 85610

== ENCOUNTER 2021-01-04 08:07 | Outpatient (RCR) | payer MEDICARE, SELFPAY ==
[2021-01-04 08:32] LABS: INR 2.1
== END 2021-04-04 23:59 | disposition home or self-care (01) ==
LOC: CHSLAB 08:07
PROVIDERS: PCP Family Medicine; Visit Provider Family Medicine
DX: Z79.01 Long term (current) use of anticoagulants (principal)
CPT/HCPCS: 36415; 85610

== ENCOUNTER 2021-01-09 05:37 | Emergency (ER) | payer MEDICARE, SELFPAY ==
--- NOTE | ~2021-01-09 | CT_ITS ---
EXAMINATION: CT diagnostic chest wo con EXAM DATE: 01/09/2021 06:57 INDICATION: right lateral chest pleuritic pain for 5 days. TECHNIQUE: Spiral CT of the chest without contrast. Axial, coronal and sagittal images of the chest were reviewed. Coronal maximum intensity pixel images of chest reviewed. The dose-length product ( DLP) for this examination was 671.61 mGy-cm. The exposure was tailored according to patient size (au to mA exposure control), and iterative reconstruction (ASIR) was used as additional dose reduction [place]. Comparison is made to prior examination from 06/15/2014. FINDINGS: There is acute right 6th rib fracture anterolaterally. There is right lower lobe 5 x 8 mm n odule, not significant changed compared to 2015. There is right upper lobe 3.5 mm nodule on image 27. Small endobronchial nodule versus debris measuring about 5 mm with small amount of calcification noah pected in left mainstem bronchus, image 42. There is tortuosity of the aorta. Linear basilar scarr ing or atelectasis. Mild emphysema and hyperinflation. There is moderate-sized sliding gastroesophage al hiatal hernia. There are no pleural or pericardial effusions. There is no mediastinal, hilar or axillary lymphadenopathy. There is no pneumothorax. Heart normal in size. There is mild cisneros ry arterial calcification, arterial sclerosis. Right liver lobe 1.4 cm cyst medially. There is mode rate scoliosis. Lumbar fusion hardware. IMPRESSION: 1. New small pulmonary and endobronchial nodules, most likely granuloma and debris respectively but 6 month follow-up chest CT without contrast is recommended. 2. Mild emphysema and hyperinflation. 3. Moderate gastroesophageal hiatal hernia. 4. Acute right 6th rib fracture which could account for patient's symptoms. Reviewed, dictated and finalized at location A. R MACHINE FEEDER IMPRESSION: 1. New small pulmonary and endobronchial nodules, most likely granuloma and de bris respectively but 6 month follow-up chest CT without contrast is recommende d. 2. Mild emphysema and hyperinflation. 3. Moderate gastroesophageal hiatal hernia. 4. Acute right 6th rib fracture which could account for patient's symptoms.
[2021-01-09 05:52] VITALS: BP 139/86; PULSE 72; RESP 18; TEMP 36.2; O2SAT 96
--- NOTE | 2021-01-09 06:24 | ED.GENADULT ---
HPI - General Adult General Source: patient and family Mode of arrival: wheelchair Limitations: no limitations History of Present Illness complaint: pleuritic right rib pain x 5 days. Onset (ago): day(s) (5) Location: chest Radiation: non-radiation Severity: mild Severity scale (1-10): 6 Quality: aching and sharp Pain Consistency: constant Relieving factors: medication Exacerbating factors: movement Associated symptoms: denies other symptoms Treatments prior to arrival: none Related Data Allergies Allergy/AdvReac Type Severity Reaction Status Date / Time egg Allergy Unknown Verified 09/14/18 15:53 gabapentin Allergy Unknown Verified 03/03/16 08:59 lactose Allergy Unknown BLOTTING Verified 09/21/18 13:04 pregabalin Allergy Unknown Verified 09/14/18 15:10 Review of Systems Review of Systems: All systems reviewed & are unremarkable except as noted in HPI and below PMFSH Past Medical History Medical History Pleurisy without effusion Family History Family History Father Diabetes mellitus Family history of cardiovascular disease Cerebrovascular accident Mother Hypertension Sibling Family history of malignant neoplasm Other Family history of arthritis Family history of gout Social History Social History Smoking status: Never smoker Alcohol intake: current Exam Const: General: cooperative and no acute distress Nutritional Appearance: overweight Orientation/consciousness: patient oriented x3 Limitations: no limitations HENMT: Head: normal to inspection, normocephalic and atraumatic Ears: hearing grossly normal bilaterally, external ears normal, TM's normal bilaterally, TM normal on the right and TM normal on the left General nose exam: Normal external nose present and Normal nares present Face and sinus: normal facial exam Mouth: Yes Normal oral and palatal mucosa present and Yes moist mucous membranes Throat: posterior oropharynx normal Eyes: General: appearance normal, both eyes and all related structures Visual So: normal visual so by confrontation Eyelids: eyelids normal Sclera: sclerae normal Cornea: corneas normal Pupils: Equal, round and reactive pupils present EOM: EOMs intact bilaterally Neck: Neck: normal visual inspection, full ROM and no lymphadenopathy Chest: Chest palpation & inspection: normal inspection of the chest and other (mildly tender right cj-lateral chest with no acute redness, swelling or) Resp: Effort & Inspection: normal respiratory effort Auscultation: rhonchi Cardio: Jugular venous distension: no JVD Palpation: normal PMI Rate: regular rate Rhythm: regular rhythm Heart sounds: S1 normal heart sound present and S2 normal heart sound present Peripheral pulses: Peripheral pulses 2+ throughout GI: Inspection: normal to inspection GI Palp: No abdominal tenderness and Yes Soft to palpation Percussion: Yes normal to percussion Auscultation: normal bowel sounds : General: Yes no CVA tenderness Back/Spine/Pelvis: Back: no CVA tenderness Thoracic/Lumbar Spine: thoracic and lumbar spine normal to inspection Skin: General skin exam: normal color Rashes: no rashes Trauma: no lacerations or abrasions Wounds: no wounds Neuro: General: oriented to person and patient oriented x3 Cranial nerves: Yes CN's II-XII intact bilaterally, Yes Bilaterally intact EOM present and Yes Nystagmus not present Cognition (Neuro): normal cognition Speech: No normal speech Gait exam (Neuro): Unable to assess gait Sensory Exam: normal sensation Extrem: General: normal to inspection and full ROM Psych: Appearance: grossly normal and well kempt Attitude: cooperative Thought process: Normal thought process present Course Course Emergency Course: Pt was stable in the ED, less painful. Reevaluation(
[2021-01-09] MEDS: KETOROLAC (*BKC) 60 MG/2 ML VIAL IM (06:31)
--- NOTE | 2021-01-09 06:46 | PC.NURSE ---
Pt. to Ct via w/c at this hour. 0 change in condition.
--- NOTE | 2021-01-09 06:57 | PC.NURSE ---
Pt returned from X-Ray at this hour.
--- NOTE | 2021-01-09 07:22 | PC.NURSE ---
Pt. report to Clarissa BLEVINS. awaiting D/C orders some change in condition pain change to 6 from 8 at rest.
[2021-01-09 07:25] VITALS: BP 158/83; PULSE 65; RESP 18; TEMP 36.3; O2SAT 95
== END 2021-01-09 07:43 | disposition home or self-care (01) ==
PROVIDERS: Emergency Provider Emergency Medicine; PCP Family Medicine
DX: R09.1 Pleurisy (principal); S22.31XA Fracture of one rib, right side, initial encounter for closed fracture
CPT/HCPCS: 71250; 96372; 99284; J1885

== ENCOUNTER 2021-01-18 12:17 | Outpatient (CLI) | payer MEDICARE, SELFPAY ==
[2021-01-18 12:28] LABS: Basophils Absolute Auto 0.05 K/mm3 (0.00-0.10); Basophils Percent Auto 0.8 % (0.0-1.0); Eosinophils Absolute Auto 0.04 K/mm3 (0.02-0.50); Eosinophils Percent Auto 0.7 % (1.0-6.0); Hematocrit 46.1 % (35.0-42.0); Hemoglobin 15.8 g/dL (11.7-13.8); Immature Granulocyte Absolute 0.02 K/mm3 (0.00-0.00); Immature Granulocyte Percent A 0.3 % (0.0-0.0); Lymphocytes Absolute Auto 1.67 K/mm3 (1.10-4.50); Lymphocytes Percent Auto 27.5 % (18.0-42.0); Mean Corpuscular HGB Conc 34.3 g/dL (32.0-36.0); Mean Corpuscular Hemoglobin 34.3 pg (27.0-31.0); Mean Corpuscular Volume 100.2 fL (78.0-102.0); Mean Platelet Volume 9.1 fl (9.2-11.8); Monocytes Percent Auto 6.6 % (2.0-11.0); Neutrophils Absolute Auto 3.9 K/mm3 (1.7-7.2); Neutrophils Percent Auto 64.1 % (50.0-70.0); Platelet Count Result 231 K/mm3 (150-420); Red Cell Distribution Width 13.9 % (11.6-14.4); White Blood Count 6.1 K/mm3 (4.8-10.8)
[2021-01-18 12:58] LABS: INR 2.2; Prothrombin Time 22.4 Seconds (9.50-12.10)
[2021-01-18 13:58] LABS: Alanine Aminotransferase 47 U/L (14-59); Albumin Level 4.1 g/dL (3.4-5.0); Alkaline Phosphatase 113 U/L (46-116); Anion Gap 9 mmol/L (8-16); Aspartate Amino Transferase 29 U/L (15-37); Bilirubin,Total 0.5 mg/dL (0.00-1.00); Blood Urea Nitrogen 22 mg/dL (7-18); Carbon Dioxide 33 mmol/L (21-32); Chloride 103 mmol/L (98-108); Estimated Glomerular Filt Rate 42; Free T4 Free Thyroxine 1.19 ng/dL (0.76-1.46); Glucose 99 mg/dL (70-99); Osmolality Calculated 303 mOsm/kg (285-295); Potassium 3.7 mmol/L (3.5-5.1); Sodium 145 mmol/L (136-145); Total Protein 7.8 g/dL (6.4-8.2)
== END 2021-01-18 12:18 | disposition home or self-care (01) ==
PROVIDERS: PCP Family Medicine; Visit Provider Family Medicine
DX: Z79.01 Long term (current) use of anticoagulants (principal); D50.9 Iron deficiency anemia, unspecified; I10 Essential (primary) hypertension; E03.9 Hypothyroidism, unspecified
CPT/HCPCS: 36415; 80053; 84439; 84443; 85025; 85610

== ENCOUNTER 2021-01-19 07:00 | Outpatient (CLI) | payer MEDICARE, SELFPAY ==
[2021-01-19 07:54] LABS: Cholesterol 259 mg/dL (0-200); HDL Direct 72 mg/dL (40-60); LDL Cholesterol Calculated 174 mg/dL (<130); Triglycerides 64 mg/dL (0-150)
== END 2021-01-19 07:01 | disposition home or self-care (01) ==
LOC: CHSLAB 07:02
PROVIDERS: PCP Family Medicine; Visit Provider Family Medicine
DX: D50.9 Iron deficiency anemia, unspecified (principal); E03.9 Hypothyroidism, unspecified; I10 Essential (primary) hypertension
CPT/HCPCS: 36415; 80061

== ENCOUNTER 2021-02-22 09:07 | Outpatient (CLI) | payer MEDICARE, SELFPAY ==
[2021-02-22 09:24] LABS: Basophils Absolute Auto 0.03 K/mm3 (0.00-0.10); Basophils Percent Auto 0.5 % (0.0-1.0); Hematocrit 45.2 % (35.0-42.0); Hemoglobin 14.9 g/dL (11.7-13.8); Immature Granulocyte Absolute 0.02 K/mm3 (0.00-0.00); Immature Granulocyte Percent A 0.3 % (0.0-0.0); Lymphocytes Absolute Auto 1.33 K/mm3 (1.10-4.50); Lymphocytes Percent Auto 20.1 % (18.0-42.0); Mean Corpuscular Hemoglobin 34.2 pg (27.0-31.0); Mean Corpuscular Volume 103.7 fL (78.0-102.0); Mean Platelet Volume 8.9 fl (9.2-11.8); Monocytes Absolute Auto 0.45 K/mm3 (0.10-0.90); Monocytes Percent Auto 6.8 % (2.0-11.0); Neutrophils Absolute Auto 4.8 K/mm3 (1.7-7.2); Neutrophils Percent Auto 72.3 % (50.0-70.0); Platelet Count Result 222 K/mm3 (150-420); Red Blood Count 4.36 M/mm3 (4.20-5.40); Red Cell Distribution Width 13.9 % (11.6-14.4); White Blood Count 6.6 K/mm3 (4.8-10.8)
[2021-02-22 10:53] LABS: Ferritin 101 ng/mL (8-252); Iron 85 ug/dL (50-170); Percent Iron Saturation 23 % (12-57)
[2021-02-22 12:28] LABS: INR 1.9; Prothrombin Time 19.4 Seconds (9.50-12.10)
[2021-02-27 02:41] LABS: Transferrin 299 mg/dL (188-341)
== END 2021-02-22 09:08 | disposition home or self-care (01) ==
PROVIDERS: PCP Family Medicine; Visit Provider Family Medicine
DX: Z79.01 Long term (current) use of anticoagulants (principal); R79.89 Other specified abnormal findings of blood chemistry
CPT/HCPCS: 36415; 82728; 83540; 83550; 84466; 85025; 85610

== ENCOUNTER 2021-04-23 08:46 | Outpatient (RCR) | payer MEDICARE, SELFPAY ==
--- NOTE | 2021-04-23 13:19 | PTOPEVAL ---
Thank you for referring Haley Rudd to [facility].? The patient is scheduled to be seen for therapy? __3__x/week for 12 visits. Please review, sign, date and return this plan of care BENJIE. I agree with and certify that the following plan of care is medically necessary. Referring Physician Date Admitting Provider: Attending Provider: Anish San Referring Provider: *PT Outpatient Evaluation Start: 04/23/21 09:06 Freq: Status: Active Protocol: Document 04/23/21 09:06 CONNER (Rec: 04/23/21 10:00 CONNER [email or web address]) Therapy Assessment Status Assessment Status Assessment Status Evaluation Evaluation Information Problem Diagnosis left hip pain, left knee pain Onset 04/17/21 Subjective Information Pt. reports that she has Query Text:As Reported By Patient/ undergone both hip and knee Family replacements on the left over the past 2 years. She reports consistent pain with the left hip since surgery. She also describes chronic pain in the front of the left knee. She reports that pain is increased with standing and walking. She states that she cannot stand the whole time to cook and needs to sit frequently. She reports she can only stand for about 15 minutes. She does use a cane and has for years. She continues to drive and get into the community despite pain. She lives alone . She reports that her goal is to improve her walking and reduce her knee and hip pain. Pain Assessment Timing of Pain Assessment Timing of Pain Assessment Pre-Treatment Pain Scale Pain Scale Used Numeric (1 - 10) Self Report Pain Assessment Left Anterior Knee(s) Reported Pain Level 7 Greatest Pain Intensity 8 Left Lateral Thigh(s) Reported Pain Level 8 Lowest Pain Intensity 5 Greatest Pain Intensity 8 Pain Score Pain Score 8,7: Self Report Interventions Used Interventions Used By Clinicians Electrical Stimulation, Exercise,Heat,Lying Supine, Sitting Cervical and Lumbar ROM Lumbar ROM Lumbar Flexion Active Knee Query Text:Hands to: Lumbar Extension (0-40) 0 Query Neville
== END 2021-05-17 17:00 | disposition home or self-care (01) ==
LOC: CHSPT 08:46
PROVIDERS: PCP Family Medicine
DX: M25.552 Pain in left hip (principal); M25.562 Pain in left knee
CPT/HCPCS: 97014; 97110; 97140; 97161; G0283

== ENCOUNTER 2021-06-17 07:12 | Outpatient (RCR) | payer MEDICARE, SELFPAY ==
[2021-04-08 10:43] LABS: INR 1.9
[2021-05-08 10:26] LABS: INR 2.9; Prothrombin Time 29.1 Seconds (9.50-12.10)
[2021-06-17 07:39] LABS: INR 2.5; Prothrombin Time 25.4 Seconds (9.50-12.10)
== END 2021-07-07 23:59 | disposition home or self-care (01) ==
LOC: CHSLAB 07:12
PROVIDERS: PCP Family Medicine; Visit Provider Family Medicine
DX: Z79.01 Long term (current) use of anticoagulants (principal)
CPT/HCPCS: 36415; 85610

== ENCOUNTER 2021-07-05 07:07 | Outpatient (CLI) | payer MEDICARE, SELFPAY ==
[2021-07-05 17:58] LABS: Anion Gap 9 mmol/L (8-16); Blood Urea Nitrogen 25 mg/dL (7-18); Calcium 9.2 mg/dL (8.5-10.1); Carbon Dioxide 30 mmol/L (21-32); Chloride 101 mmol/L (98-108); Estimated Glomerular Filt Rate 52; Glucose 109 mg/dL (70-99); Osmolality Calculated 295 mOsm/kg (285-295); Potassium 3.5 mmol/L (3.5-5.1); Sodium 140 mmol/L (136-145)
== END 2021-07-05 07:08 | disposition home or self-care (01) ==
PROVIDERS: PCP Family Medicine
DX: M54.50 Low back pain, unspecified (principal)
CPT/HCPCS: 36415; 80048

== ENCOUNTER 2021-08-15 11:10 | Outpatient (CLI) | payer MEDICARE, SELFPAY | END 2021-08-15 11:11 | disposition home or self-care (01) | LOC: CHSLAB 11:13 | PROVIDERS: PCP Family Medicine | DX: M54.50 Low back pain, unspecified (principal) | CPT/HCPCS: 87081 ==

== ENCOUNTER 2021-08-17 07:17 | Outpatient (CLI) | payer MEDICARE, SELFPAY ==
--- NOTE | 2021-08-17 07:55 | ECG_ITS ---
Measurements Intervals [place] Rate: 64 P: 53 GA: 179 QRS: -17 QRSD: 101 T: 58 QT: 438 QTc: 452 Interpretive Statements SINUS RHYTHM EARLY PRECORDIAL R/S TRANSITION BORDERLINE ST-T WAVE ABNORMALITY- ANTERIOR LEADS BASELINE ARTIFACT- II, III, AVF BORDERLINE ECG Electronically Signed On 08-17-2021 9:02:10 CDT by Danielito Leon D.O.
== END 2021-08-17 07:18 | disposition home or self-care (01) ==
LOC: CHSCARD 07:18
PROVIDERS: PCP Family Medicine; Visit Provider Family Medicine
DX: I10 Essential (primary) hypertension (principal)
CPT/HCPCS: 93005

== ENCOUNTER 2021-09-16 12:39 | Outpatient (CLI) | payer MEDICARE, SELFPAY ==
[2021-09-16 12:53] LABS: Basophils Absolute Auto 0.04 K/mm3 (0.00-0.10); Basophils Percent Auto 0.7 % (0.0-1.0); Eosinophils Absolute Auto 0.14 K/mm3 (0.02-0.50); Eosinophils Percent Auto 2.3 % (1.0-6.0); Hematocrit 43.6 % (35.0-42.0); Hemoglobin 14.8 g/dL (11.7-13.8); Immature Granulocyte Absolute 0.02 K/mm3 (0.00-0.00); Immature Granulocyte Percent A 0.3 % (0.0-0.0); Lymphocytes Absolute Auto 1.48 K/mm3 (1.10-4.50); Lymphocytes Percent Auto 24.3 % (18.0-42.0); Mean Corpuscular HGB Conc 33.9 g/dL (32.0-36.0); Mean Corpuscular Volume 100.2 fL (78.0-102.0); Monocytes Absolute Auto 0.38 K/mm3 (0.10-0.90); Monocytes Percent Auto 6.2 % (2.0-11.0); Neutrophils Percent Auto 66.2 % (50.0-70.0); Platelet Count Result 208 K/mm3 (150-420); Red Blood Count 4.35 M/mm3 (4.20-5.40); Red Cell Distribution Width 13.9 % (11.6-14.4); White Blood Count 6.1 K/mm3 (4.8-10.8)
--- NOTE | 2021-09-16 13:04 | ECG_ITS ---
Measurements Intervals [place] Rate: 85 P: 38 SC: 204 QRS: -34 QRSD: 100 T: 55 QT: 391 QTc: 465 Interpretive Statements SINUS RHYTHM LEFT AXIS DEVIATION PATTERN CONSISTENT WITH PULMONARY DISEASE NONSPECIFIC T-WAVE ABNORMALITY BORDERLINE ECG COMPARED TO ECG 08/17/2021 07:55:25 LEFT-AXIS DEVIATION NOW PRESENT Electronically Signed On 09-16-2021 14:32:49 CDT by Yordy Rocha M.D.
[2021-09-16 13:10] LABS: Alanine Aminotransferase 29 U/L (14-59); Albumin Level 3.9 g/dL (3.4-5.0); Alkaline Phosphatase 92 U/L (46-116); Anion Gap 9 mmol/L (8-16); Aspartate Amino Transferase 28 U/L (15-37); Bilirubin,Total 0.6 mg/dL (0.00-1.00); Blood Urea Nitrogen 19 mg/dL (7-18); Calcium 9.3 mg/dL (8.5-10.1); Carbon Dioxide 30 mmol/L (21-32); Chloride 102 mmol/L (98-108); Estimated Glomerular Filt Rate 47; Glucose 105 mg/dL (70-99); Osmolality Calculated 294 mOsm/kg (285-295); Potassium 3.6 mmol/L (3.5-5.1); Sodium 141 mmol/L (136-145); Total Protein 7.5 g/dL (6.4-8.2)
== END 2021-09-16 12:40 | disposition home or self-care (01) ==
LOC: CHSLAB 12:44
PROVIDERS: PCP Family Medicine
DX: D50.9 Iron deficiency anemia, unspecified (principal); I10 Essential (primary) hypertension
CPT/HCPCS: 36415; 80053; 85025; 93005

== ENCOUNTER 2021-10-14 09:05 | Outpatient (RCR) | payer MEDICARE, SELFPAY ==
[2021-08-02 07:39] LABS: INR 2.7; Prothrombin Time 27.7 Seconds (9.50-12.10)
[2021-09-05 07:41] LABS: INR 2.5; Prothrombin Time 25.5 Seconds (9.50-12.10)
[2021-10-09 09:49] LABS: INR 1.1; Prothrombin Time 11.9 Seconds (9.50-12.10)
[2021-10-14 09:37] LABS: INR 1.6; Prothrombin Time 17.3 Seconds (9.50-12.10)
== END 2021-10-31 23:59 | disposition home or self-care (01) ==
LOC: CHSLAB 09:05
PROVIDERS: PCP Family Medicine; Visit Provider Family Medicine
DX: Z79.01 Long term (current) use of anticoagulants (principal)
CPT/HCPCS: 36415; 85610

== ENCOUNTER 2021-11-11 08:01 | Outpatient (CLI) | payer MEDICARE, SELFPAY ==
[2021-11-11 08:38] LABS: Prothrombin Time 59.9 Seconds (9.50-12.10)
[2021-11-11 08:40] LABS: Free T4 Free Thyroxine 1.15 ng/dL (0.76-1.46); Thyroid Stimulating Hormone 8.86 uIU/mL (0.36-3.74)
[2021-11-11 08:57] LABS: INR 6.3
== END 2021-11-11 08:02 | disposition home or self-care (01) ==
LOC: CHSLAB 08:02
PROVIDERS: PCP Family Medicine; Visit Provider Family Medicine
DX: E03.9 Hypothyroidism, unspecified (principal); Z79.01 Long term (current) use of anticoagulants
CPT/HCPCS: 36415; 84439; 84443; 85610

== ENCOUNTER 2021-12-26 09:48 | Outpatient (RCR) | payer MEDICARE, SELFPAY ==
--- NOTE | 2021-12-26 11:01 | PTOPEVAL1 ---
Assessment and note entered by JT File, PT Evaluation Information Assessment Status Evaluation Diagnosis low back pain, lumbago Onset 09/26/21 Subjective Information patient reports she has had back pain for years. she reports she had surgery to clean out her arthritis back on 09/26/21. she reports prior to surgery she was having difficulty standing for more than a few minutes due to pain. she reports since surgery, her time standing and walking is increased, but she still has increased pain more than 30 minutes standing. she reports she is also complicated by arthritis and pain in the R hip. she reports after surgery she was doing exercises on her own at home. she reports she has no NTB in the legs. she reports prior to surgery she had pain down the L LE. Reported Pain Level Pain Score 5: Self Report Assessment PT Clinical Summary mrs. navarro presents to skilled PT services for evaluation and treatment of lower back pain and core weakness following a lumbar surgery back in september. she presents this date with core weakness, decresaed hip flexibility, decreased endurance, and abnormal gait mechanics. she is complicated by R hip OA as well as her lumbar DDD. she would do well to attend and participate in skilled PT services to improve her endurance, functional mobiltiy, strength, and functional activity performance to improve her quality of life. Plan of Care Interventions Electrical Stimulation,Gait Training,Hot Pack/Cold Pack,Manual Therapy,Neuro Re-education,Patient/ Caregiver Educati,Therapeutic Activities, Therapeutic Exercise PT Services Indicated Yes Treatment Frequency and 3x weekly for 12 visits Duration These treatments will address the objective and functional deficits as defined above. The patient will be advanced safely and appropriately in order for the patient to progress towards his/her prior level of function. Additional exercises will be introduced and as well as a comprehensive home exercise program upon discharge, if needed, ?to ensure carryover of functional gains achieved in the clinic. This treatment plan has been reviewed and agreement upon by the patient.
--- NOTE | 2022-01-24 09:11 | PTOPDC ---
Assessment and note entered by JT File, PT Evaluation Information Assessment Status Evaluation Diagnosis low back pain, lumbago Onset 09/26/21 Subjective Information patient reports she feels pretty good this date. however, she reports yesterday she did not feel well. she reports she continues to have pain in her lower back. she reports her pain is increased with prolonged standing and walking time. she reports she is currently only treating pain with oral pain medications. she reports she is going to see an ortho for the pain in the R hip in the near future. Reported Pain Level Pain Score 6: Self Report Assessment PT Clinical Summary mrs. navarro presents to skilled PT services for her 12th skilled therapy visit this bout. she continues to report pain in the lower back, decreased activity endurance, and limited standing and walking time due to pain in the lower back. she has made little progress towards goals in therapy, and thus will be dc'd from skilled PT to an independent HEP as of this date. Plan of Care Treatment Frequency and DC to independent HEP Duration
== END 2022-01-24 13:31 | disposition home or self-care (01) ==
LOC: CHSPT 09:48
DX: M54.50 Low back pain, unspecified (principal)
CPT/HCPCS: 97110; 97112; 97140; 97161; 97530

== ENCOUNTER 2022-01-22 09:01 | Outpatient (RCR) | payer MEDICARE, SELFPAY ==
[2021-11-14 08:37] LABS: INR 3.1; Prothrombin Time 30.8 Seconds (9.50-12.10)
[2021-11-22 07:52] LABS: INR 3.1; Prothrombin Time 30.8 Seconds (9.50-12.10)
[2021-11-29 08:32] LABS: INR 2.8; Prothrombin Time 28.2 Seconds (9.50-12.10)
[2021-12-20 08:33] LABS: INR 2.6; Prothrombin Time 26.1 Seconds (9.50-12.10)
[2022-01-22 09:48] LABS: INR 2.3; Prothrombin Time 23.8 Seconds (9.50-12.10)
== END 2022-02-12 23:59 | disposition home or self-care (01) ==
LOC: CHSLAB 09:01
PROVIDERS: PCP Family Medicine; Visit Provider Family Medicine
DX: Z51.81 Encounter for therapeutic drug level monitoring (principal); Z79.01 Long term (current) use of anticoagulants
CPT/HCPCS: 36415; 85610

== ENCOUNTER 2022-03-24 08:46 | Outpatient (RCR) | payer MEDICARE, SELFPAY ==
--- NOTE | 2022-03-24 09:53 | PTOPEVAL1 ---
Assessment and note entered by Carrie Hess DPT Evaluation Information Assessment Status Evaluation Diagnosis R hip pain Onset 03/14/22 Subjective Information Patient reports she has had chronic hip pain for years. She also had R knee pain and had it replaced in 2020. After that replacement she had x -rays done one the hip and it was bone on bone . She has difficulty with navigating stairs to get into the house, standing to cook, and doing laundry. She reports pain is better with sitting. She ambulates with a STC in the community but does have a walker for walker surgery. She is home alone but after her surgery her daughter is going to stay with her. 3 steps to get into the house with B hand rails but too wide to use B railing. Reported Pain Level Pain Score 4: Self Report Assessment PT Clinical Summary Haley is a 81 year old female who presents to PT for pre op prior to R YOHANA on 04/16/22. Patient presents with decreased R hip strength and ROM as well as difficulty with stair navigation, cooking and cleaning. Prior to onset of increase in pain she was able to perform stair navigation, cooking and cleaning with minimal pain increase. Patient demonstrates independent with given HEP and will be discharged following initial evaluation. Plan of Care Interventions Electrical Stimulation,Gait Training,Hot Pack/Cold Pack,Manual Therapy,Neuro Re-education,Patient/ Caregiver Educati,Therapeutic Activities, Therapeutic Exercise,Self-Care/Home Management PT Services Indicated Yes Treatment Frequency and Discharge to independent HEP Duration These treatments will address the objective and functional deficits as defined above. The patient will be advanced safely and appropriately in order for the patient to progress towards his/her prior level of function. Additional exercises will be introduced and as well as a comprehensive home exercise program upon discharge, if needed, ?to ensure carryover of functional gains achieved in the clinic. This treatment plan has been reviewed and agreement upon by the patient.
--- NOTE | 2022-03-24 09:59 | PTOPDC ---
Assessment and note entered by Carrie Hess DPT Evaluation Information Assessment Status Discharge - Pt Not Presen Diagnosis R hip pain Onset 03/14/22 Subjective Information Patient reports she has had chronic hip pain for years. She also had R knee pain and had it replaced in 2020. After that replacement she had x -rays done one the hip and it was bone on bone . She has difficulty with navigating stairs to get into the house, standing to cook, and doing laundry. She reports pain is better with sitting. She ambulates with a STC in the community but does have a walker for walker surgery. She is home alone but after her surgery her daughter is going to stay with her. 3 steps to get into the house with B hand rails but too wide to use B railing. Reported Pain Level Pain Score 4: Self Report Assessment PT Clinical Summary Haley is a 81 year old female who presented today for pre op appointment prior to R YOHANA on 04/22/22. Patient was fitted for walker height today and demonstrates good understanding of HEP and stair navigation. Patient will be discharged to independent HEP at this time. PT Clinical Summary Haley is a 81 year old female who presents to PT for pre op prior to R YOHANA on 04/16/22. Patient presents with decreased R hip strength and ROM as well as difficulty with stair navigation, cooking and cleaning. Prior to onset of increase in pain she was able to perform stair navigation, cooking and cleaning with minimal pain increase. Patient demonstrates independent with given HEP and will be discharged following initial evaluation. Plan of Care Interventions Patient/Caregiver Educati,Therapeutic Exercise Interventions Electrical Stimulation,Gait Training,Hot Pack/Cold Pack,Manual Therapy,Neuro Re-education,Patient/ Caregiver Educati,Therapeutic Activities, Therapeutic Exercise,Self-Care/Home Management PT Services Indicated No PT Services Indicated Yes Treatment Frequency and Discharge to independent HEP Duration Treatment Frequency and Discharge to independent HEP Duration
--- NOTE | 2022-03-24 10:10 | PTOPEVAL1 ---
Assessment and note entered by Carrie Hess DPT Evaluation Information Assessment Status Discharge - Pt Not Presen Diagnosis R hip pain Onset 03/14/22 Subjective Information Patient reports she has had chronic hip pain for years. She also had R knee pain and had it replaced in 2020. After that replacement she had x -rays done one the hip and it was bone on bone . She has difficulty with navigating stairs to get into the house, standing to cook, and doing laundry. She reports pain is better with sitting. She ambulates with a STC in the community but does have a walker for walker surgery. She is home alone but after her surgery her daughter is going to stay with her. 3 steps to get into the house with B hand rails but too wide to use B railing. Reported Pain Level Pain Score 4: Self Report Assessment PT Clinical Summary Haley is a 81 year old female who presented today for pre op appointment prior to R YOHANA on 04/22/22. Patient was fitted for walker height today and demonstrates good understanding of HEP and stair navigation. Patient will be discharged to independent HEP at this time. PT Clinical Summary Haley is a 81 year old female who presents to PT for pre op prior to R YOHANA on 04/16/22. Patient presents with decreased R hip strength and ROM as well as difficulty with stair navigation, cooking and cleaning. Prior to onset of increase in pain she was able to perform stair navigation, cooking and cleaning with minimal pain increase. Patient demonstrates independent with given HEP and will be discharged following initial evaluation. Plan of Care Interventions Patient/Caregiver Educati,Therapeutic Exercise Interventions Electrical Stimulation,Gait Training,Hot Pack/Cold Pack,Manual Therapy,Neuro Re-education,Patient/ Caregiver Educati,Therapeutic Activities, Therapeutic Exercise,Self-Care/Home Management PT Services Indicated No PT Services Indicated No Treatment Frequency and Discharge to independent HEP Duration Treatment Frequency and Discharge to independent HEP Duration These treatments will address the objective and functional deficits as defined above. The patient will be advanced safely and appropriately in order for the patient to progress towards his/her prior level of function. Additional exercises will be introduced and as well as a comprehensive home exercise program upon discharge, if needed, ?to ensure carryover of functional gains achieved in the clinic. This treatment plan has been reviewed and agreement
== END 2022-03-24 10:36 | disposition home or self-care (01) ==
LOC: CHSPT 08:46
PROVIDERS: PCP Family Medicine
DX: M16.11 Unilateral primary osteoarthritis, right hip (principal); M25.551 Pain in right hip
CPT/HCPCS: 97110; 97161

== ENCOUNTER 2022-04-11 08:03 | Outpatient (CLI) | payer MEDICARE, SELFPAY ==
--- NOTE | 2022-04-11 08:30 | ECG_ITS ---
Rate 67 TX 182 QRSd 101 QT 414 QTc 439 --[place]-- P 70 QRS 5 T 70 SINUS RHYTHM NONSPECIFIC T-WAVE ABNORMALITY ABNORMAL ECG Electronically Signed On 04-11-2022 15:45:39 PHARMACY INFORMATICS MANAGER by Bonilla Ball M.D. COMPARED TO ECG 09/16/2021 13:14:07 NO SIGNIFICANT CHANGES MTDD
== END 2022-04-11 08:04 | disposition home or self-care (01) ==
LOC: CHSLAB 08:05
PROVIDERS: PCP Family Medicine; Visit Provider Family Medicine
DX: Z86.14 Personal history of Methicillin resistant Staphylococcus aureus infection (principal); I10 Essential (primary) hypertension; R94.31 Abnormal electrocardiogram [ECG] [EKG]
CPT/HCPCS: 87081; 93005

== ENCOUNTER 2022-04-25 07:12 | Emergency (ER) | payer MEDICARE, SELFPAY ==
--- NOTE | ~2022-04-25 | US_ITS ---
US venous doppler LE RT DATE: 04/25/2022 09:00 INDICATION: Elevated d-dimer. Right thigh pain postoperatively TECHNIQUE: Real-time and color flow imaging and Doppler analysis of the veins of the right lower extr emity COMPARISON: None FINDINGS: The right greater saphenous vein is patent. There is spontaneous and phasic flow and normal augmentation and color flow signal and normal compression of the right common femoral vein and femor al vein, in addition to posterior tibial and peroneal veins. There is normal flow in one of 2 paired popliteal veins. Thrombus and lack of compression of the othe r popliteal vein. IMPRESSION: Deep venous thrombosis of one of 2 paired popliteal veins Reviewed, dictated and finalized at [facility]. Reviewed, dictated and finalized at [facility]. N CONTROL ELECTRONIC TECHNICIAN
--- NOTE | ~2022-04-25 | CT_ITS ---
EXAMINATION: CTA chest PE protocol DATE: 04/25/2022 11:06 INDICATION: Elevated d-dimer. Right lower extremity venous thrombosis. Right hip surgery on 04/22/2022. TECHNIQUE: Computed tomography angiography (CTA) of the chest was performed with 100 mL Omnipaque-350 intravenous contrast timed to evaluate the pulmonary arteries. Coronal maximum intensity projection 3D-reconstructions were created by the technologist. Automated exposure control and iterative reconst ruction technique were employed. Exam dose: 757.16 mGy-cm total exam DLP. COMPARISON: 01/09/2021 CT chest FINDINGS: There is diagnostic contrast enhancement of the pulmonary arteries and no evidence of pulmo nary embolism. Mild thoracic aortic aneurysm, the ascending aorta measuring up to approximately 4.3 cm diameter, the mid aortic arch 3.2 cm diameter. The proximal descending thoracic aorta measures up to 3.1 cm diamet er. No thoracic aortic or proximal to mid abdominal aortic dissection. No hilar or mediastinal mass lesion or lymphadenopathy. Cardiomegaly. No pericardial effusion. No pleural effusion. Mild discoid scarring in the posterior right apex. There is mild discoid atelectasis or scarring at t he lung bases. Occasional small pulmonary nodules including the following: Small lateral right upper lobe calcified pulmonary granuloma. 8 mm probable right lower lobe pulmonary granuloma. Small superior segment left lower lobe calcified pulmonary granuloma. 4.7 and 2.7 mm peripheral left lower lobe pulmonary opacities, likely granulomas [id number] size sliding hiatal hernia. Normal morphology of the adrenal glands. Included upper abdominal structures are unremarkable. Scoliosis and degenerative change of the thoracolumbar spine. No suspicious osteolytic or osteoblast ic lesions are identified. IMPRESSION: No evidence of pulmonary embolism Old pulmonary granulomatous disease Cardiomegaly Mild thoracic aortic aneurysm Sliding hiatal hernia Reviewed, dictated and finalized at [facility]. Reviewed, dictated and finalized at [facility]. R PRESS OPERATOR
[2022-04-25 07:12] VITALS: BP 129/80; PULSE 80; RESP 16; TEMP 36.2; O2SAT 99
--- NOTE | 2022-04-25 07:23 | ED.GENADULT ---
HPI - General Adult General Chief complaint: Wound/Laceration Stated complaint: Right hip pain Time Seen by Provider: 04/25/22 07:22 History of Present Illness HPI narrative: The patient is an 81-year-old woman with history of pulmonary embolism and lower extremity DVT, who has been on warfarin 2.5 mg daily. This was discontinued 5 days prior to her hip surgery which was performed 3 days ago, 04/22/2022. She did take the 1st dose of warfarin on the night of surgery, 04/22/2022 as well as 2 more doses over the last 2 days, 04/23/2022 and 04/24/2022, for total of 3 doses of warfarin so far since surgery. Three days ago, she underwent right total hip arthroplasty. She has had a prior left total hip arthroplasty proceeded by pinning of the left hip. She has had bilateral total knee arthroplasties as well as back surgery. Does have peripheral neuropathy, hypertension, hypothyroidism, seasonal allergies, and asthma for which she takes inhalers as needed. The patient presents with tenderness at the right hip region with fullness and skin hematoma and bruising at the site of her surgery, constant since the past 2 days, increasing today. She is worried about a blood clot. She has no dyspnea. She has no calf symptoms such as tenderness or discomfort. No fevers. No tachycardia or palpitations. No other complaints. The tenderness is only at the right hip region where her incision is with surrounding bruising. Able to ambulate with a walker. She requests an INR check. Related Data Home Medications Medication Instructions Recorded Confirmed amlodipine 10 mg tablet 10 mg PO DAILY 04/25/22 04/25/22 furosemide 20 mg tablet 20 mg PO DAILY 04/25/22 04/25/22 gabapentin 600 mg tablet 1,200 mg PO TID 04/25/22 04/25/22 hydrochlorothiazide 25 mg tablet 25 mg PO DAILY 04/25/22 04/25/22 levothyroxine 137 mcg tablet 137 mcg PO DAILY 04/25/22 04/25/22 levothyroxine 50 mcg tablet 50 mcg PO DAILY 04/25/22 04/25/22 lorazepam 1 mg tablet 1 mg PO DAILY PRN Anxiety 04/25/22 04/25/22 montelukast 10 mg tablet 10 mg PO DAILY 04/25/22 04/25/22 pantoprazole 40 mg tablet,delayed 40 mg PO BID 04/25/22 04/25/22 release paroxetine HCl 20 mg tablet 20 mg PO DAILY 04/25/22 04/25/22 pramipexole 1.5 mg tablet 1.5 mg PO DAILY 04/25/22 04/25/22 spironolactone 50 mg tablet 50 mg PO DAILY 04/25/22 04/25/22 warfarin 1 mg tablet 0.5 mg PO DAILY 04/25/22 04/25/22 warfarin 2 mg tablet 2 mg PO DAILY 04/25/22 04/25/22 Allergies Allergy/AdvReac Type Severity Reaction Status Date / Time egg Allergy Unknown Verified 09/14/18 15:53 gabapentin Allergy Unknown Verified 03/03/16 08:59 lactose Allergy Unknown BLOTTING Verified 09/21/18 13:04 pregabalin Allergy Unknown Verified 09/14/18 15:10 Review of Systems Review of Systems: All systems reviewed & are unremarkable except as noted in HPI and below Constitutional: Constitutional: Reports as per HPI, Reports no additional constitutional complaints, Denies chills, Denies excessive sweating, Denies fatigue, Denies fever(s), Denies headache(s) and Denies weakness Eyes: Eyes: Reports as per HPI, Reports no additional eye complaints, Denies change in vision and Denies photophobia ENT: Reports system reviewed and no additional complaints, except as documented, Reports as per HPI, Denies dysphagia, Denies vertigo, Denies dizziness, Denies headache(s), Denies lip swelling, Denies nasal congestion, Denies sore throat, Denies throat swelling and Denies tongue swelling Cardiovascular: Cardiovascular: Reports as per HPI, Reports no additional cardiovascular complaints, Denies chest pain, Denies syncope, Denies rapid heart rate and Denies dyspnea Respiratory: Respiratory: Reports as per HPI, Reports no additional respiratory complaints, Denies chest congestion, Denies cough, Denies dyspnea and Denies wheezing Gastrointestinal: Gastrointestinal: Reports as per HPI, Reports no additional gastrointestinal complaints, Denies abdominal pain, Denies
[2022-04-25 07:56] LABS: Basophils Absolute Auto 0.04 K/mm3 (0.00-0.10); Basophils Percent Auto 0.5 % (0.0-1.0); Eosinophils Absolute Auto 0.01 K/mm3 (0.02-0.50); Eosinophils Percent Auto 0.1 % (1.0-6.0); Hematocrit 35.8 % (35.0-42.0); Hemoglobin 11.9 g/dL (11.7-13.8); Immature Granulocyte Absolute 0.05 K/mm3 (0.00-0.00); Immature Granulocyte Percent A 0.7 % (0.0-0.0); Lymphocytes Absolute Auto 1.34 K/mm3 (1.10-4.50); Lymphocytes Percent Auto 18.3 % (18.0-42.0); Mean Corpuscular HGB Conc 33.2 g/dL (32.0-36.0); Mean Corpuscular Hemoglobin 34.8 pg (27.0-31.0); Mean Corpuscular Volume 104.7 fL (78.0-102.0); Mean Platelet Volume 9.3 fl (9.2-11.8); Monocytes Absolute Auto 0.34 K/mm3 (0.10-0.90); Monocytes Percent Auto 4.7 % (2.0-11.0); Neutrophils Absolute Auto 5.5 K/mm3 (1.7-7.2); Neutrophils Percent Auto 75.7 % (50.0-70.0); Platelet Count Result 186 K/mm3 (150-420); Red Blood Count 3.42 M/mm3 (4.20-5.40); Red Cell Distribution Width 14.2 % (11.6-14.4); White Blood Count 7.3 K/mm3 (4.8-10.8)
[2022-04-25 08:11] LABS: INR 1.6; Partial Thromboplastin Time 37.5 SEC (23.90-30.70); Prothrombin Time 17.2 Seconds (9.50-12.10)
[2022-04-25 08:13] LABS: Alanine Aminotransferase 28 U/L (14-59); Albumin Level 3.1 g/dL (3.4-5.0); Alkaline Phosphatase 65 U/L (46-116); Anion Gap 6 mmol/L (8-16); Aspartate Amino Transferase 56 U/L (15-37); Bilirubin,Total 0.5 mg/dL (0.00-1.00); Blood Urea Nitrogen 24 mg/dL (7-18); Calcium 8.7 mg/dL (8.5-10.1); Carbon Dioxide 35 mmol/L (21-32); Chloride 101 mmol/L (98-108); Estimated CRCL calculation 47 ml/min; Estimated Glomerular Filt Rate 51; Glucose 99 mg/dL (70-99); Osmolality Calculated 298 mOsm/kg (285-295); Potassium 3.1 mmol/L (3.5-5.1); Sodium 142 mmol/L (136-145); Total Protein 6.9 g/dL (6.4-8.2)
[2022-04-25 08:17] LABS: D Dimer 3.01 mg/L (0.19-0.50)
[2022-04-25] MEDS: POTASSIUM BICARBONATE 25 MEQ TABEF 50 MEQ PO (08:38)
[2022-04-25 11:12] VITALS: BP 138/62; PULSE 66; RESP 18; O2SAT 97
[2022-04-25 11:20] VITALS: BP 136/69; PULSE 69; RESP 20; O2SAT 97
--- NOTE | 2022-04-25 11:23 | PC.NURSE ---
0900 pt resting per cot. family at bedside 1000 awaiting lab results. [address] for [address] chest. returns sitting up in bedside chair due to back discomfort. awaiting results. call obando in reach. family at bedside
[2022-04-25 11:48] VITALS: BP 134/74; PULSE 74; RESP 20; TEMP 36.9; O2SAT 97
== END 2022-04-25 11:55 | disposition home or self-care (01) ==
PROVIDERS: Emergency Provider Emergency Medicine; PCP Family Medicine
DX: S70.11XA Contusion of right thigh, initial encounter (principal); G89.18 Other acute postprocedural pain; M25.551 Pain in right hip; I82.531 Chronic embolism and thrombosis of right popliteal vein; E87.6 Hypokalemia; I10 Essential (primary) hypertension; E03.9 Hypothyroidism, unspecified; J45.909 Unspecified asthma, uncomplicated; Z86.711 Personal history of pulmonary embolism; Z79.01 Long term (current) use of anticoagulants; Z96.641 Presence of right artificial hip joint; X58.XXXA Exposure to other specified factors, initial encounter
CPT/HCPCS: 36415; 71275; 80053; 85025; 85380; 85610; 85730; 93971; 99284; A9270; Q9967

== ENCOUNTER 2022-05-15 13:23 | Outpatient (CLI) | payer MEDICARE, SELFPAY ==
[2022-05-15 13:51] LABS: INR 2.5; Prothrombin Time 25.1 Seconds (9.50-12.10)
[2022-05-15 14:42] LABS: Folic Acid 11.7 ng/mL (8.6->20); Vitamin B12 < 80 pg/mL (193-986)
== END 2022-05-15 13:24 | disposition home or self-care (01) ==
LOC: CHSLAB 13:27
PROVIDERS: PCP Family Medicine; Visit Provider Family Medicine
DX: R79.89 Other specified abnormal findings of blood chemistry (principal); Z79.01 Long term (current) use of anticoagulants
CPT/HCPCS: 36415; 82607; 82746; 85610

== ENCOUNTER 2022-06-18 08:09 | Outpatient (CLI) | payer MEDICARE, SELFPAY ==
[2022-06-18 09:26] LABS: Folic Acid 7.4 ng/mL (8.6->20); Vitamin B12 > 2000 pg/mL (193-986)
== END 2022-06-18 08:10 | disposition home or self-care (01) ==
LOC: CHSLAB 08:11
PROVIDERS: PCP Family Medicine; Visit Provider Family Medicine
DX: D51.0 Vitamin B12 deficiency anemia due to intrinsic factor deficiency (principal)
CPT/HCPCS: 36415; 82607; 82746

== ENCOUNTER 2022-07-29 07:21 | Outpatient (RCR) | payer MEDICARE, SELFPAY ==
[2022-05-07 09:17] LABS: INR 4.8; Prothrombin Time 46.6 Seconds (9.50-12.10)
[2022-05-30 10:09] LABS: INR 2.6; Prothrombin Time 26.8 Seconds (9.50-12.10)
[2022-06-30 10:05] LABS: INR 2.7; Prothrombin Time 27.2 Seconds (9.50-12.10)
[2022-07-29 07:50] LABS: INR 2.4; Prothrombin Time 25.1 Seconds (9.50-12.10)
== END 2022-08-05 23:59 | disposition home or self-care (01) ==
LOC: CHSLAB 07:21
PROVIDERS: PCP Family Medicine; Visit Provider Family Medicine
DX: Z51.81 Encounter for therapeutic drug level monitoring (principal); Z79.01 Long term (current) use of anticoagulants
CPT/HCPCS: 36415; 85610

== ENCOUNTER 2022-09-04 15:44 | Outpatient (RCR) | payer MEDICARE, SELFPAY ==
--- NOTE | 2022-09-04 17:02 | PTOPEVAL1 ---
Assessment and note entered by Cassy Avalos, PT Evaluation Information Assessment Status Evaluation Diagnosis Unsteady Gait, Balance Disorder Onset 09/03/22 Subjective Information Haley Rudd reports she has been having dizzy spells when she is walking noting that she feels like she is staggering side to side. She also notes some dizziness when sitting. She also notes she feels lightheaded when she stands up and she has to wait a minute before moving. She had a fall in early August when she was going up stairs and caught her toe on the step. She just fell to the step and half way caught herself with the rail. She has not had any falls when she gets the dizziness or unsteadiness. She uses a cane when she goes out but does not use it in her home very often. She has had hip and knee surgeries in the past as well as chronic low back pain. The lower back pain limits her ability to stand and walk. She lives alone in single story home with 4 steps with a handrail on both sides to get in the house. She reports independence with her daily activities. Reported Pain Level Pain Score 4: Self Report Assessment PT Clinical Summary Haley Rudd presents with unsteady gait and dizziness. She has difficulty with sit to stand transfers, walking longer distances, and going up and down stairs. She objectively demonstrates decreased bilateral hip and core strength, impaired standing static and dynamic balance, impaired gait, decreased VOR, and decreased endurance. She will benefit from skilled PT to address these limitations and return her to her PLOF. Plan of Care Interventions Gait Training,Neuro Re-education,Patient/Caregiver Educati,Therapeutic Activities,Therapeutic Exercise PT Services Indicated Yes Treatment Frequency and 2 times a week for 10 visits Duration These treatments will address the objective and functional deficits as defined above. The patient will be advanced safely and appropriately in order for the patient to progress towards his/her prior level of function. Additional exercises will be introduced and as well as a comprehensive home exercise program upon discharge, if needed, ?to ensure carryover of functional gains achieved in the clinic. This treatment plan has been reviewed and agreement upon by the patient.
--- NOTE | 2022-09-04 17:02 | OPREHPOC ---
Outpatient Therapy Plan of Care This is a Multidisciplinary Plan of Care that may contain components documented by all disciplines (PT, OT, and ST.) PT Problem 1 PT Problem #1 Knowledge Deficit PT Goal 1 Goal The patient will be independent in a home exercise program to continue after discharge from formal PT. Target Visit 10 PT Problem 2 PT Problem #2 Impaired Balance PT Goal 1 Goal The patient will score at least 19/28 on the Tinetti Balance Scale indicating less likelihood of a fall. Target Visit 10 PT Problem 3 PT Problem #3 Impaired Gait PT Goal 1 Goal The patient will improve 5x sit to stand score to 15 seconds demonstrating improved mobility and functional strength. Target Visit 10 PT Problem 4 PT Problem #4 Impaired Gait PT Goal 1 Goal The patient will demonstrate the ability to ambulate 600 feet during the 6 minute walk test to improve community ambulation. Target Visit 10
--- NOTE | 2022-10-14 10:21 | OPREHPOC ---
Outpatient Therapy Plan of Care This is a Multidisciplinary Plan of Care that may contain components documented by all disciplines (PT, OT, and ST.) PT Problem 1 PT Problem #1 Knowledge Deficit PT Goal 1 Goal The patient will be independent in a home exercise program to continue after discharge from formal PT. Target Visit 10 Progress Met PT Problem 2 PT Problem #2 Impaired Balance PT Goal 1 Goal The patient will score at least 19/28 on the Tinetti Balance Scale indicating less likelihood of a fall. Target Visit 10 Progress Met PT Problem 3 PT Problem #3 Impaired Gait PT Goal 1 Goal The patient will improve 5x sit to stand score to 15 seconds demonstrating improved mobility and functional strength. Target Visit 10 Progress Met PT Problem 4 PT Problem #4 Impaired Gait PT Goal 1 Goal The patient will demonstrate the ability to ambulate 600 feet during the 6 minute walk test to improve community ambulation. Target Visit 10 Progress Not Met
--- NOTE | 2022-10-14 10:21 | PTOPDC ---
Assessment and note entered by Carrie Hess DPT Evaluation Information Assessment Status Discharge Diagnosis Unsteady Gait, Balance Disorder Onset 09/03/22 Subjective Information Patient reports no falls since start of PT. She reports that she feels that her balance is better. She reports she is compliant with HEP. She reports her back starts to bother her after doing too much. Reported Pain Level Pain Score 4: Self Report Assessment PT Clinical Summary Patient was seen for 10 visits of skilled PT. Patient met all goals for balance and functional activities but has not met goal for 6 min walk test. She reports no falls since start of care and is independent with HEP. Patient is appropriate for DC at this time. Plan of Care PT Services Indicated No
== END 2022-12-03 23:59 | disposition home or self-care (01) ==
LOC: CHSPT 15:44
PROVIDERS: PCP Family Medicine; Visit Provider Family Medicine
DX: R26.81 Unsteadiness on feet (principal)
CPT/HCPCS: 97110; 97112; 97161; 97530; 97750

== ENCOUNTER 2022-10-01 07:31 | Emergency (ER) | payer MEDICARE, SELFPAY ==
--- NOTE | ~2022-10-01 | CT_ITS ---
EXAMINATION: CT abdomen pelvis w con DATE: 10/01/2022 09:16 INDICATION: Low abdominal pain. TECHNIQUE: Computed tomography (CT) of the abdomen and pelvis was performed with 100 mL Omnipaque 350 intravenous contrast. Automated exposure control and iterative reconstruction technique were employe d. The dose-length product was 1196.50 mGy-cm. COMPARISON: CT abdomen and pelvis 02/23/2017, chest CT 01/09/2021 FINDINGS: The visualized portions of the lung bases demonstrate mild atelectasis. There are a few chr onic scattered pulmonary nodules measuring up to 8 mm, likely benign. No pleural effusion. Cardiomega ly is noted. No pericardial effusion. There is a large sliding hiatal hernia. There is a 14 mm cyst i n the liver. The gallbladder, spleen, pancreas, and adrenal glands are normal. There is cortical thin lore of the kidneys. There is a 5 mm cyst in left kidney. There is a filter in the inferior vena cava . There is fat stranding at the root of the small bowel mesentery. There is diverticulosis of the col on without evidence of diverticulitis. There are no dilated loops of bowel. The appendix is not visua lized. Aortic atherosclerosis is noted. There are no pathologically enlarged lymph nodes. There is no free intraperitoneal fluid. There are bilateral hip arthroplasties. There is an old healed fracture of right inferior pubic ramus. There are changes of posterior and anterior fusion procedures from L4 to S1. There is moderate lumbar spondylosis. IMPRESSION: 1. Fat stranding at the root of the small bowel mesentery, which may be edema or inflammation (mesent carlos panniculitis). 2. Large sliding hiatal hernia. Reviewed, dictated and finalized at [facility]. IMPRESSION: 1. Fat stranding at the root of the small bowel mesentery, which may be edema o r inflammation (mesenteric panniculitis). 2. Large sliding hiatal hernia.
[2022-10-01 07:34] VITALS: BP 155/96; PULSE 70; RESP 16; TEMP 36.4; O2SAT 99
--- NOTE | 2022-10-01 07:37 | ED.ABDPAIN ---
HPI - Abdominal Pain General Chief Complaint: Abdominal Pain Stated Complaint: abdominal pain Time Seen by Provider: 10/01/22 07:35 Source: patient Mode of arrival: ambulatory Limitations: no limitations History of Present Illness HPI narrative: 82-year-old female with a history of hypertension, hypothyroidism, DVT/pulmonary embolism on warfarin, hiatal hernia presents to the ER with with a 2 day history of -- lower abdominal pain which is intermittent. -- increasing abdominal distension No fever. No nausea / vomiting / diarrhea. She has a history of intermittent constipation requiring MiraLax. MD elicited complaint: abdominal pain Pertinent past history: constipation Onset (ago): day(s) ( Started 2 days ago) Pain Consistency: intermittent Location: LLQ Severity: mild Quality: aching Radiation: none Migration to: no migration Exacerbating factors: nothing Relieving factors: nothing Associated symptoms: denies other symptoms Related Data Home Medications Medication Instructions Recorded Confirmed amlodipine 10 mg tablet 10 mg PO DAILY 04/25/22 10/01/22 furosemide 20 mg tablet 20 mg PO DAILY 04/25/22 10/01/22 gabapentin 600 mg tablet 1,200 mg PO TID 04/25/22 10/01/22 hydrochlorothiazide 25 mg tablet 25 mg PO DAILY 04/25/22 10/01/22 levothyroxine 137 mcg tablet 137 mcg PO DAILY 04/25/22 10/01/22 levothyroxine 50 mcg tablet 50 mcg PO DAILY 04/25/22 10/01/22 lorazepam 1 mg tablet 1 mg PO DAILY PRN Anxiety 04/25/22 10/01/22 montelukast 10 mg tablet 10 mg PO DAILY 04/25/22 10/01/22 pantoprazole 40 mg tablet,delayed 40 mg PO BID 04/25/22 10/01/22 release paroxetine HCl 20 mg tablet 20 mg PO DAILY 04/25/22 10/01/22 pramipexole 1.5 mg tablet 1.5 mg PO DAILY 04/25/22 10/01/22 spironolactone 50 mg tablet 50 mg PO DAILY 04/25/22 10/01/22 warfarin 1 mg tablet 0.5 mg PO DAILY 04/25/22 10/01/22 warfarin 2 mg tablet 2 mg PO DAILY 04/25/22 10/01/22 Allergies Allergy/AdvReac Type Severity Reaction Status Date / Time egg Allergy Unknown Unknown Verified 10/01/22 07:43 gabapentin Allergy Unknown Unknown Verified 10/01/22 07:43 lactose Allergy Unknown BLOTTING Verified 10/01/22 07:43 pregabalin Allergy Unknown Unknown Verified 10/01/22 07:43 Review of Systems Review of Systems: All systems reviewed & are unremarkable except as noted in HPI and below Constitutional: Constitutional: Reports as per HPI and Reports no additional constitutional complaints Eyes: Eyes: Reports as per HPI and Reports no additional eye complaints ENT: Reports system reviewed and no additional complaints, except as documented and Reports as per HPI Cardiovascular: Cardiovascular: Reports as per HPI and Reports no additional cardiovascular complaints Respiratory: Respiratory: Reports as per HPI and Reports no additional respiratory complaints Gastrointestinal: Gastrointestinal: Reports as per HPI, Reports no additional gastrointestinal complaints and Reports abdominal pain Genitourinary: Genitourinary: Reports no additional female genitourinary complaints Musculoskeletal: Musculoskeletal: Reports no additional musculoskeletal complaints and Reports as per HPI Integumentary/Breasts: Skin/Breast: Reports system reviewed and no additional complaints, except as docu and Reports as per HPI Neurologic: Reports system reviewed and no additional complaints, except as documented and Reports as per HPI Psychiatric: Psychiatric: Reports no additional psychiatric complaints and Reports as per HPI Endocrine: Endocrine: Reports no additional endocrine complaints and Reports as per HPI Hematologic/Lymphatic: Hematologic/Lymphatic: Reports no additional hematologic/lymphatic complaints and Reports as per HPI Allergic/Immunologic: Allergic/Immunologic: Reports no additional allergic/immunologic complaints PMFSH Past Medical History Medical History Pleurisy without effusion Family History Family History (R
[2022-10-01 08:11] LABS: Basophils Absolute Auto 0.02 K/mm3 (0.00-0.10); Basophils Percent Auto 0.4 % (0.0-1.0); Hematocrit 42.9 % (35.0-42.0); Hemoglobin 14.2 g/dL (11.7-13.8); Immature Granulocyte Absolute 0.02 K/mm3 (0.00-0.00); Immature Granulocyte Percent A 0.4 % (0.0-0.0); Mean Corpuscular HGB Conc 33.1 g/dL (32.0-36.0); Mean Corpuscular Hemoglobin 32.8 pg (27.0-31.0); Mean Corpuscular Volume 99.1 fL (78.0-102.0); Mean Platelet Volume 9.4 fl (9.2-11.8); Monocytes Absolute Auto 0.32 K/mm3 (0.10-0.90); Monocytes Percent Auto 6.7 % (2.0-11.0); Neutrophils Absolute Auto 3.3 K/mm3 (1.7-7.2); Neutrophils Percent Auto 69.5 % (50.0-70.0); Platelet Count Result 206 K/mm3 (150-420); Red Blood Count 4.33 M/mm3 (4.20-5.40); White Blood Count 4.8 K/mm3 (4.8-10.8)
[2022-10-01 08:26] LABS: Alanine Aminotransferase 21 U/L (14-59); Albumin Level 3.7 g/dL (3.4-5.0); Alkaline Phosphatase 97 U/L (46-116); Anion Gap 9 mmol/L (8-16); Aspartate Amino Transferase 22 U/L (15-37); Bilirubin,Total 0.5 mg/dL (0.00-1.00); Blood Urea Nitrogen 24 mg/dL (7-18); Carbon Dioxide 31 mmol/L (21-32); Chloride 103 mmol/L (98-108); Estimated CRCL calculation 45 ml/min; Estimated Glomerular Filt Rate 50; Glucose 113 mg/dL (70-99); Lipase 40 U/L (16-77); Osmolality Calculated 301 mOsm/kg (285-295); Potassium 3.6 mmol/L (3.5-5.1); Sodium 143 mmol/L (136-145); Total Protein 8.2 g/dL (6.4-8.2)
[2022-10-01 08:29] LABS: Lactic Acid Reflex 1.3 mmol/L (0.4-2.0)
[2022-10-01] MEDS: LACTATED RINGERS 500 ML 999 ML IV CONT (08:31)
[2022-10-01 08:32] LABS: Partial Thromboplastin Time 44.6 SEC (23.90-30.70)
[2022-10-01 08:37] LABS: Appearance Urine Clear (Clear); Bilirubin Urine Negative (Negative); Blood Urine Negative (Negative); Color Urine Light Yellow (Yellow); Glucose Urine UA Negative (Negative); Ketones Urine Negative (Negative); Leukocyte Esterase Ur Negative LEU/UL (Negative); Nitrate Urine Negative (Negative); Protein Urine Negative (Negative); Urobilinogen Urine 0.2 mg/dL (0.2-1.0); pH Urine 7.5 (5.0-8.0)
[2022-10-01 08:45] LABS: Troponin I 10.2 ng/L (0.00-60.4)
[2022-10-01 08:46] LABS: Add Urine Microscopic? NO
[2022-10-01 08:51] LABS: Thyroid Stimulating Hormone 5.19 uIU/mL (0.36-3.74)
--- NOTE | 2022-10-01 08:55 | PC.NURSE ---
PT UP TO RR WITHOUT DIFFICULTY, NAD NOTED. DAUGHTER AT BEDSIDE. PT IS AWAITING RESULTS AT THIS TIME. WILL CONTINUE TO MONITOR.
[2022-10-01 09:05] LABS: INR 2.5; Prothrombin Time 25.4 Seconds (9.64-11.0)
[2022-10-01 10:18] VITALS: BP 154/84; PULSE 62; RESP 20; O2SAT 95
== END 2022-10-01 10:28 | disposition home or self-care (01) ==
PROVIDERS: Emergency Provider Internal Medicine Critical Care Medicine; PCP Family Medicine
DX: K65.4 Sclerosing mesenteritis (principal); R10.32 Left lower quadrant pain; I10 Essential (primary) hypertension; E03.9 Hypothyroidism, unspecified; Z86.711 Personal history of pulmonary embolism; Z86.718 Personal history of other venous thrombosis and embolism; Z79.01 Long term (current) use of anticoagulants
CPT/HCPCS: 36415; 74177; 80053; 81003; 83605; 83690; 84443; 84484; 85025; 85610; 85730; 99284; J7120; Q9967

== ENCOUNTER 2022-12-01 08:22 | Outpatient (CLI) | payer MEDICARE, SELFPAY ==
[2022-12-01 08:38] LABS: Basophils Absolute Auto 0.04 K/mm3 (0.00-0.10); Basophils Percent Auto 0.7 % (0.0-1.0); Hematocrit 43.4 % (35.0-42.0); Hemoglobin 14.3 g/dL (11.7-13.8); Immature Granulocyte Absolute 0.02 K/mm3 (0.00-0.00); Immature Granulocyte Percent A 0.4 % (0.0-0.0); Lymphocytes Absolute Auto 1.31 K/mm3 (1.10-4.50); Lymphocytes Percent Auto 23.9 % (18.0-42.0); Mean Corpuscular HGB Conc 32.9 g/dL (32.0-36.0); Mean Corpuscular Hemoglobin 32.9 pg (27.0-31.0); Mean Corpuscular Volume 99.8 fL (78.0-102.0); Monocytes Absolute Auto 0.33 K/mm3 (0.10-0.90); Neutrophils Absolute Auto 3.8 K/mm3 (1.7-7.2); Platelet Count Result 227 K/mm3 (150-420); Red Blood Count 4.35 M/mm3 (4.20-5.40); Red Cell Distribution Width 13.5 % (11.6-14.4); White Blood Count 5.5 K/mm3 (4.8-10.8)
[2022-12-01 09:48] LABS: Alanine Aminotransferase 24 U/L (14-59); Albumin Level 3.7 g/dL (3.4-5.0); Alkaline Phosphatase 103 U/L (46-116); Anion Gap 5 mmol/L (8-16); Aspartate Amino Transferase 24 U/L (15-37); Bilirubin,Total 0.4 mg/dL (0.00-1.00); Blood Urea Nitrogen 20 mg/dL (7-18); Calcium 9.3 mg/dL (8.5-10.1); Carbon Dioxide 34 mmol/L (21-32); Chloride 104 mmol/L (98-108); Estimated Glomerular Filt Rate 51; Free T4 Free Thyroxine 1.18 ng/dL (0.76-1.46); Glucose 91 mg/dL (70-99); Osmolality Calculated 298 mOsm/kg (285-295); Potassium 3.3 mmol/L (3.5-5.1); Sodium 143 mmol/L (136-145); Thyroid Stimulating Hormone 5.34 uIU/mL (0.36-3.74); Total Protein 7.1 g/dL (6.4-8.2)
== END 2022-12-01 08:23 | disposition home or self-care (01) ==
PROVIDERS: PCP Family Medicine; Visit Provider Family Medicine
DX: D50.9 Iron deficiency anemia, unspecified (principal); I10 Essential (primary) hypertension; E03.9 Hypothyroidism, unspecified
CPT/HCPCS: 36415; 80053; 84439; 84443; 85025

== ENCOUNTER 2023-01-16 07:38 | Outpatient (RCR) | payer MEDICARE, SELFPAY ==
[2022-11-13 08:19] LABS: Prothrombin Time 21.3 Seconds (9.50-12.10)
[2022-12-19 07:40] LABS: INR 2.6; Prothrombin Time 26.3 Seconds (9.50-12.10)
[2023-01-16 08:24] LABS: INR 2.5
== END 2023-02-11 23:59 | disposition home or self-care (01) ==
LOC: CHSLAB 07:38
PROVIDERS: PCP Family Medicine; Visit Provider Family Medicine
DX: Z51.81 Encounter for therapeutic drug level monitoring (principal); Z79.01 Long term (current) use of anticoagulants
CPT/HCPCS: 36415; 85610

== ENCOUNTER 2023-04-10 07:13 | Outpatient (RCR) | payer MEDICARE, SELFPAY ==
[2023-02-17 07:39] LABS: INR 2.7; Prothrombin Time 27.2 Seconds (9.50-12.10)
[2023-03-26 08:07] LABS: INR 1.7; Prothrombin Time 17.5 Seconds (9.50-12.10)
[2023-04-10 07:45] LABS: INR 2.3; Prothrombin Time 23.9 Seconds (9.50-12.10)
== END 2023-05-18 23:59 | disposition home or self-care (01) ==
LOC: CHSLAB 07:13
PROVIDERS: PCP Family Medicine; Visit Provider Family Medicine
DX: Z51.81 Encounter for therapeutic drug level monitoring (principal); Z79.01 Long term (current) use of anticoagulants
CPT/HCPCS: 36415; 85610

== ENCOUNTER 2023-05-18 07:57 | Outpatient (RCR) | payer MEDICARE, SELFPAY ==
--- NOTE | 2023-05-18 09:02 | OPREHPOC ---
Outpatient Therapy Plan of Care This is a Multidisciplinary Plan of Care that may contain components documented by all disciplines (PT, OT, and ST.) PT Problem 1 PT Problem #1 Knowledge Deficit PT Goal 1 Goal 1. independent and compliant with HEP Target Visit 6 PT Problem 2 PT Problem #2 Pain PT Goal 1 Goal 1. decrease pain at worst to 5/10 or less in the lower back Target Visit 12 PT Problem 3 PT Problem #3 Impaired Range of Motion PT Goal 1 Goal 1. improve lumbar active flexion to the ankles 2. improve bilateral lumbar active side bending to 30 degrees or better Target Visit 12 PT Problem 4 PT Problem #4 Impaired Strength PT Goal 1 Goal 1. patient to display 4+/5 or better bilateral hip strength 2. patient to display 5/5 bilateral knee strength Target Visit 12 PT Problem 5 PT Problem #5 Impaired Functional Mobil PT Goal 1 Goal 1. oswestry to display 30% or less functional deficits 2. patient to perform a supine bridge with buttock leaving the table and holding for 10 seconds 3. patient to complete 6 minute walk test without sitting rest 4. patient to stand for 30 minutes in therapy without sitting to rest Target Visit 12
--- NOTE | 2023-05-18 09:02 | PTOPEVAL1 ---
Assessment and note entered by JT File, PT Evaluation Information Assessment Status Evaluation Diagnosis neurogenic claudication due to lumbar spinal stenosis Onset 05/12/23 Subjective Information patient reports she is having issues with the lower back. she reports it has not been to a point of no pain in a long time, but it does flare up and get really bad. she reports she is unable to stand up or walk straight. she reports she has difficulty with standing and walking time due to pain in the back. she reports she does not have pain or symptoms in the legs. she reports sitting is better. she reports she is only able to stand and move around for 15-20 minutes at a time. Reported Pain Level Pain Score 5: Self Report Assessment PT Clinical Summary mrs. navarro presents to skilled PT services for evaluation and treatment of neurogenic claudication from lumbar spinal stenosis. she presents today with poor posture, decreased lumbar rom, weak hips/LE's, weak core, and pain in the lower back. she is limited in her standing and ambulation time due to pain and symptoms occurring in the lower back. she displays signs and symptoms consistent with her referring diagnosis. patient would benefit from continued skilled PT to improve her objective/functional deficits and improve her functional activity performance to improve her quality of life. Plan of Care Interventions Electrical Stimulation,Gait Training,Hot Pack/Cold Pack,Manual Therapy,Neuro Re-education,Patient/ Caregiver Educati,Therapeutic Activities, Therapeutic Exercise PT Services Indicated Yes Treatment Frequency and 3x weekly for 12 visits Duration These treatments will address the objective and functional deficits as defined above. The patient will be advanced safely and appropriately in order for the patient to progress towards his/her prior level of function. Additional exercises will be introduced and as well as a comprehensive home exercise program upon discharge, if needed, ?to ensure carryover of functional gains achieved in the clinic. This treatment plan has been reviewed and agreement upon by the patient.
--- NOTE | 2023-05-25 08:07 | PCPTNOTE ---
Patient cancelled session today due to illness.
--- NOTE | 2023-06-10 08:44 | OPREHPOC ---
Outpatient Therapy Plan of Care This is a Multidisciplinary Plan of Care that may contain components documented by all disciplines (PT, OT, and ST.) PT Problem 1 PT Problem #1 Knowledge Deficit PT Goal 1 Goal 1. independent and compliant with HEP Target Visit 6 Progress Met PT Problem 2 PT Problem #2 Pain PT Goal 1 Goal 1. decrease pain at worst to 5/10 or less in the lower back Target Visit 12 Progress Not Met PT Problem 3 PT Problem #3 Impaired Range of Motion PT Goal 1 Goal 1. improve lumbar active flexion to the ankles 2. improve bilateral lumbar active side bending to 30 degrees or better Target Visit 12 Progress Not Met PT Problem 4 PT Problem #4 Impaired Strength PT Goal 1 Goal 1. patient to display 4+/5 or better bilateral hip strength -partially met 2. patient to display 5/5 bilateral knee strength -met Target Visit 12 Progress Partially Met PT Problem 5 PT Problem #5 Impaired Functional Mobil PT Goal 1 Goal 1. oswestry to display 30% or less functional deficits 2. patient to perform a supine bridge with buttock leaving the table and holding for 10 seconds 3. patient to complete 6 minute walk test without sitting rest 4. patient to stand for 30 minutes in therapy without sitting to rest Target Visit 12 Progress Not Met
--- NOTE | 2023-06-10 08:45 | PTOPDC ---
Assessment and note entered by Cassy Avalos, PT Evaluation Information Assessment Status Discharge Diagnosis neurogenic claudication due to lumbar spinal stenosis Onset 05/12/23 Subjective Information Haley Rudd reports overall her back pain has not changed since initiating PT. She is reporting increased pain and stiffness today in particular for unknown reasons. She continues to have difficulty walking and standing for more than 15- 20 minutes. She will follow up with her back doctor in June 2023. Reported Pain Level Pain Score 6: Self Report Assessment PT Clinical Summary Haley Rudd has completed 10 skilled PT visits for neurogenic claudication due to spinal stenosis . She is reporting no overall change in her symptoms and would like to discontinue skilled PT and perform her home exercises independently. She will see her eating disorder specialist in June 2023. She objectively demonstrates improved core and hip strength since initiating PT however, she has regressed lumbar AROM and pain levels remain high. She will be discharged to an independent home program. Plan of Care PT Services Indicated No
== END 2023-06-10 08:53 | disposition home or self-care (01) ==
LOC: CHSPT 07:57
DX: M48.062 Spinal stenosis, lumbar region with neurogenic claudication (principal)
CPT/HCPCS: 97014; 97110; 97140; 97161; G0283

== ENCOUNTER 2023-06-19 07:11 | Outpatient (CLI) | payer MEDICARE, SELFPAY ==
[2023-06-19 08:11] LABS: Basophils Absolute Auto 0.02 K/mm3 (0.00-0.10); Basophils Percent Auto 0.4 % (0.0-1.0); Hematocrit 43.3 % (35.0-42.0); Immature Granulocyte Absolute 0.01 K/mm3 (0.00-0.00); Immature Granulocyte Percent A 0.2 % (0.0-0.0); Lymphocytes Absolute Auto 1.42 K/mm3 (1.10-4.50); Lymphocytes Percent Auto 28.8 % (18.0-42.0); Mean Corpuscular HGB Conc 32.3 g/dL (32-36); Mean Corpuscular Hemoglobin 31.7 pg (27.0-31.0); Mean Platelet Volume 9.4 fl (9.2-11.8); Monocytes Absolute Auto 0.41 K/mm3 (0.10-0.90); Monocytes Percent Auto 8.3 % (2.0-11.0); Neutrophils Absolute Auto 3.07 K/mm3 (1.70-7.20); Neutrophils Percent Auto 62.3 % (50.0-70.0); Platelet Count Result 218 K/mm3 (150-420); Red Blood Count 4.42 M/mm3 (4.20-5.40); Red Cell Distribution Width 13.4 % (11.6-14.4); White Blood Count 4.9 K/mm3 (4.8-10.8)
[2023-06-19 08:28] LABS: Alanine Aminotransferase 27 U/L (14-59); Albumin Level 3.7 g/dL (3.4-5.0); Alkaline Phosphatase 90 U/L (46-116); Anion Gap 6 mmol/L (4-12); Aspartate Amino Transferase 24 U/L (15-37); Bilirubin,Total 0.6 mg/dL (0.00-1.00); Blood Urea Nitrogen 26 mg/dL (7-18); Calcium 9.3 mg/dL (8.5-10.1); Carbon Dioxide 34 mmol/L (21-32); Chloride 102 mmol/L (98-108); Estimated Glomerular Filt Rate 49; Free T4 Free Thyroxine 1.24 ng/dL (0.76-1.46); Glucose 113 mg/dL (70-99); Osmolality Calculated 299 mOsm/kg (285-295); Potassium 3.9 mmol/L (3.5-5.1); Sodium 142 mmol/L (136-145); Thyroid Stimulating Hormone 5.99 uIU/mL (0.36-3.74); Total Protein 7.1 g/dL (6.4-8.2)
[2023-06-19 08:47] LABS: INR 1.8; Prothrombin Time 18.6 Seconds (9.50-12.1)
== END 2023-06-19 07:12 | disposition home or self-care (01) ==
LOC: CHSLAB 07:13
PROVIDERS: PCP Family Medicine; Visit Provider Family Medicine
DX: E03.9 Hypothyroidism, unspecified (principal); I10 Essential (primary) hypertension; Z79.01 Long term (current) use of anticoagulants
CPT/HCPCS: 36415; 80053; 84439; 84443; 85025; 85610

== ENCOUNTER 2023-07-03 07:31 | Outpatient (CLI) | payer MEDICARE, SELFPAY ==
[2023-07-03 08:26] LABS: INR 4.4; Prothrombin Time 43.3 Seconds (9.50-12.1)
[2023-07-03 08:35] LABS: Anion Gap 5 mmol/L (4-12); Blood Urea Nitrogen 29 mg/dL (7-18); Calcium 9.4 mg/dL (8.5-10.1); Carbon Dioxide 35 mmol/L (21-32); Chloride 102 mmol/L (98-108); Estimated Glomerular Filt Rate 48; Glucose 105 mg/dL (70-99); Osmolality Calculated 299 mOsm/kg (285-295); Potassium 3.4 mmol/L (3.5-5.1); Sodium 142 mmol/L (136-145)
== END 2023-07-03 07:32 | disposition home or self-care (01) ==
LOC: CHSLAB 07:34
PROVIDERS: PCP Family Medicine
DX: M48.062 Spinal stenosis, lumbar region with neurogenic claudication (principal); Z79.01 Long term (current) use of anticoagulants
CPT/HCPCS: 36415; 80048; 85610

== ENCOUNTER 2023-08-03 10:45 | Outpatient (RCR) | payer MEDICARE, SELFPAY ==
--- NOTE | 2023-08-03 11:45 | PTOPEVAL1 ---
Assessment and note entered by Bonilla Adame Evaluation Information Assessment Status Evaluation Diagnosis back pain, T11 vertebral fracture Onset 08/02/22 Subjective Information Pt. reports that her back pain has been going on/ off for years. She reports that she is taking daily Tramadol and Hydrocodone as needed. She states that she cannot stand for any significant duration due to pain. She reports she can currently stand for about 5 minutes, and regular household duties take much longer. She reports that she continue to care for herself despite her pain. She states that her goals for therapy is to improve her endurance with standing and to be able to decrease her pain. Reported Pain Level Pain Score 3: Self Report Assessment PT Clinical Summary Pt. is an 83 year old female who enters the clinic with back pain due t T11 fracture without trauma. She presents with impaired postural awareness, impaired gait, impaired balance, generalized l.e. weakness and functional decline. Continued skilled PT is indicated in order to improve these areas to allow the pt. to be able to participate in IADL's with improved comfort and efficiency. Plan of Care Interventions Electrical Stimulation,Gait Training,Hot Pack/Cold Pack,Manual Therapy,Neuro Re-education,Patient/ Caregiver Educati,Therapeutic Activities, Therapeutic Exercise PT Services Indicated Yes Treatment Frequency and 3x/week x 10 visits Duration These treatments will address the objective and functional deficits as defined above. The patient will be advanced safely and appropriately in order for the patient to progress towards his/her prior level of function. Additional exercises will be introduced and as well as a comprehensive home exercise program upon discharge, if needed, ?to ensure carryover of functional gains achieved in the clinic. This treatment plan has been reviewed and agreement upon by the patient.
--- NOTE | 2023-08-03 11:46 | OPREHPOC ---
Outpatient Therapy Plan of Care This is a Multidisciplinary Plan of Care that may contain components documented by all disciplines (PT, OT, and ST.) PT Problem 1 PT Problem #1 Knowledge Deficit PT Goal 1 Goal Pt. will be independent with a HEP addressing strength and mobility Target Visit 2 PT Problem 2 PT Problem #2 Impaired Balance PT Goal 1 Goal Improve Tinetti score to 24 or greater indicating improved balance Target Visit 10 PT Problem 3 PT Problem #3 Impaired Gait PT Goal 1 Goal Pt. will complete the 6 minute walk test for a distance of 700' indicating improve endurance and efficiency. Target Visit 10
--- NOTE | 2023-08-28 09:43 | OPREHPOC ---
Outpatient Therapy Plan of Care This is a Multidisciplinary Plan of Care that may contain components documented by all disciplines (PT, OT, and ST.) PT Problem 1 PT Problem #1 Knowledge Deficit PT Goal 1 Goal Pt. will be independent with a HEP addressing strength and mobility Target Visit 2 Progress Met PT Problem 2 PT Problem #2 Impaired Balance PT Goal 1 Goal Improve Tinetti score to 24 or greater indicating improved balance Target Visit 10 Progress Not Met PT Problem 3 PT Problem #3 Impaired Gait PT Goal 1 Goal Pt. will complete the 6 minute walk test for a distance of 700' indicating improve endurance and efficiency. Target Visit 10 Progress Not Met
--- NOTE | 2023-08-28 09:43 | PTOPDC ---
Assessment and note entered by JT File, PT Evaluation Information Assessment Status Re-evaluation Diagnosis back pain, T11 vertebral fracture Onset 08/02/22 Subjective Information patient reports she feels pretty good today. she reports she has low pain, and it may be even lower by the end of therapy as she has taken a pain pill right before therapy today. she is curious about what exercises she can do to strengthen her arms, and reports she would like some home exercises and guidance on strengthening exercises. Reported Pain Level Pain Score 4: Self Report Assessment PT Clinical Summary mrs. navarro presents to skilled PT services for her 10th skilled PT visit. she continues to have pain, but reports she takes meds that do help with management of her pain. she has made progress in balance, and nearly has met goal for tinetti score . she has not met goal for walking distance/time, but is limited due to her breathing/other health issues. no change in oswestry score reported today . she was educated today in new HEP exercises to include strengthening of the UE's, and she will DC skilled PT today to an independent HEP. Plan of Care PT Services Indicated Yes
== END 2023-11-01 23:59 | disposition home or self-care (01) ==
LOC: CHSPT 10:45
DX: M48.062 Spinal stenosis, lumbar region with neurogenic claudication (principal); S22.089D Unspecified fracture of T11-T12 vertebra, subsequent encounter for fracture with routine healing
CPT/HCPCS: 97014; 97110; 97112; 97161; G0283

== ENCOUNTER 2023-08-26 08:06 | Outpatient (RCR) | payer MEDICARE, SELFPAY ==
[2023-06-05 09:27] LABS: INR 3.7; Prothrombin Time 36.6 Seconds (9.50-12.1)
[2023-07-10 11:02] LABS: INR 3.7; Prothrombin Time 36.9 Seconds (9.50-12.1)
[2023-07-23 07:32] LABS: Prothrombin Time 20.9 Seconds (9.50-12.1)
[2023-08-26 08:40] LABS: INR 1.7; Prothrombin Time 18.3 Seconds (9.50-12.1)
== END 2023-09-03 23:59 | disposition home or self-care (01) ==
LOC: CHSLAB 08:06
PROVIDERS: PCP Family Medicine; Visit Provider Family Medicine
DX: Z51.81 Encounter for therapeutic drug level monitoring (principal); Z79.01 Long term (current) use of anticoagulants
CPT/HCPCS: 36415; 85610

== ENCOUNTER 2023-09-03 12:21 | Outpatient (CLI) | payer MEDICARE, SELFPAY ==
[2023-09-03 16:32] LABS: Folic Acid 18.5 ng/mL (8.6->20)
[2023-09-03 16:35] LABS: Vitamin B12 > 2000 pg/mL (193-986)
== END 2023-09-03 12:22 | disposition home or self-care (01) ==
PROVIDERS: PCP Family Medicine; Visit Provider Family Medicine
DX: D51.0 Vitamin B12 deficiency anemia due to intrinsic factor deficiency (principal)
CPT/HCPCS: 36415; 82607; 82746

== ENCOUNTER 2023-12-14 09:38 | Outpatient (RCR) | payer MEDICARE, SELFPAY ==
[2023-09-15 08:38] LABS: INR 2.5; Prothrombin Time 25.4 Seconds (9.50-12.1)
[2023-10-09 07:30] LABS: INR 2.6; Prothrombin Time 26.9 Seconds (9.50-12.1)
[2023-11-11 11:21] LABS: INR 2.7; Prothrombin Time 27.1 Seconds (9.50-12.1)
[2023-12-10 12:18] LABS: Prothrombin Time 53.9 Seconds (9.50-12.1)
[2023-12-10 12:32] LABS: INR 5.6
[2023-12-14 10:12] LABS: INR 2.5; Prothrombin Time 25.5 Seconds (9.50-12.1)
== END 2023-12-14 23:59 | disposition home or self-care (01) ==
LOC: CHSLAB 09:38
PROVIDERS: PCP Family Medicine; Visit Provider Family Medicine
DX: Z51.81 Encounter for therapeutic drug level monitoring (principal); Z79.01 Long term (current) use of anticoagulants
CPT/HCPCS: 36415; 85610

== ENCOUNTER 2024-02-24 14:21 | Outpatient (CLI) | payer MEDICARE, SELFPAY ==
[2024-02-24 15:10] LABS: INR 3.1; Prothrombin Time 30.6 Seconds (9.50-12.1)
[2024-02-24 16:05] LABS: Vitamin B12 380 pg/mL (193-986)
== END 2024-02-24 14:22 | disposition home or self-care (01) ==
LOC: CHSLAB 14:23
PROVIDERS: PCP Family Medicine; Visit Provider Family Medicine
DX: Z79.01 Long term (current) use of anticoagulants (principal)
CPT/HCPCS: 36415; 82607; 85610

== ENCOUNTER 2024-03-16 08:43 | Outpatient (RCR) | payer MEDICARE, SELFPAY ==
[2023-12-31 08:50] LABS: INR 2.7; Prothrombin Time 27.2 Seconds (9.50-12.1)
[2024-03-16 09:28] LABS: INR 2.5; Prothrombin Time 25.1 Seconds (9.50-12.1)
== END 2024-03-30 23:59 | disposition home or self-care (01) ==
LOC: CHSLAB 08:43
PROVIDERS: PCP Family Medicine; Visit Provider Family Medicine
DX: Z51.81 Encounter for therapeutic drug level monitoring (principal); Z79.01 Long term (current) use of anticoagulants
CPT/HCPCS: 36415; 85610

== ENCOUNTER 2024-03-23 11:26 | Outpatient (CLI) | payer MEDICARE, SELFPAY ==
--- NOTE | 2024-03-23 11:36 | ECG_ITS ---
Test Date: 2024-03-23 11:50:07 Measurements Intervals Stewart Rate: 82 P: 47 SD: 204 QRS: -19 QRSD: 94 T: 58 QT: 381 QTc: 446 Interpretive Statements SINUS RHYTHM INCOMPLETE RIGHT BUNDLE BRANCH BLOCK MINIMAL Q WAVES- HIGH LATERAL LEADS BASELINE ARTIFACT- I, II, AVR BORDERLINE ECG No previous ECG available for comparison Electronically Signed On 03-23-2024 13:37:39 PROGRAM SUPPORT SPECIALIST by Danielito Leon D.O.
--- OUTSIDE RECORDS SUMMARY | 2024-03-23 13:03 | XMS_ITS | Clinical Summary ---
Author Organization [facility] Address [address] [place] [address] Care Team Providers Care Financial Service Representative Name Role Phone Chary Singh MD Primary Care Provider [phone] Allergies Active Allergy Reactions Criticality Noted Date Comments Pregabalin Nausea Only 04/11/2020 Medications levothyroxine 50 MCG tabletIndicati ons:Hypothyroi dism Take 50 mcg by mouth every morning. Indications: Underactive Thyroid Takes with a 137 mg daily Active levothyroxine 137 MCG tabletIndicati ons:Hypothyroi dism Take 137 mcg by mouth every morning. Indications: Underactive Thyroid Takes with a 50 mg tab daily Active hydroCHLOROthi azide 25 MG tabletIndicati ons:Fluid Retention Take 25 mg by mouth every morning. Indications: Fluid Retention Active montelukast 10 MG tabletIndicati ons:Asthma Take 10 mg by mouth daily. Indications: Asthma Active spironolactone 50 MG tabletIndicati ons:Fluid Retention,Hype rtension Take 50 mg by mouth daily. Indications: Fluid Retention, High Blood Pressure Disorder Active PARoxetine 20 MG tabletIndicati ons:Anxiety associated with Depression Take 20 mg by mouth every morning. Indications: Anxiousness associated with Depression Active pantoprazole EC 40 MG tabletIndicati ons:Gastroesop hageal Reflux Disease Take 40 mg by mouth 2 (two) times a day. Indications: Gastroesophageal Reflux Disease Active gabapentin 600 MG tabletIndicati ons:Neuropathy Take 600 mg by mouth 3 (three) times daily. Indications: Nerve Disease Active warfarin 2.5 MG tabletIndicati ons:Anticoagul ant Therapy Take 2.5 mg by mouth nightly. Indications: Anticoagulant Therapy Hold for surgery Active amLODIPine 10 MG tabletIndicati ons:Hypertensi on Take 10 mg by mouth nightly at bedtime. Indications: High Blood Pressure Disorder Active pramipexole 1.5 MG tabletIndicati ons:Restless Leg Syndrome Take 1.5 mg by mouth nightly at bedtime. Indications: Restless Leg Syndrome Active LORazepam 1 MG tablet Take 1 mg by mouth every 6 (six) hours as needed for Anxiety. Active ferrous sulfate, 65 mg elemental, 325 (65 FE) MG tabletIndicati ons:Anemia Take 325 mg by mouth nightly. Indications: Anemia Activ e polyethylene glycol 17 GM/SCOOP powderIndicati ons:Constipati on Take 17 g by mouth daily. Indications: Constipation Dissolve powder in 240 mL water 1 capful daily Active docusate sodium 100 MG capsuleIndicat ions:Constipat ion Take 100 mg by mouth. Indications: Constipation Takes 2/tabs in am & 1/tab @@ HS Active cephALEXin (KEFLEX) 500 MG capsule Take 2 capsules (1,000 mg total) by mouth every 8 (eight) hours. Take 2 tabs (1000 mg) by mouth before bedtime the night of surgery. Then take 2 more tabs by mouth at 6:00 am the following morning after surgery. Total 4 tabs. 4 capsule 04/23/19 23 Active alendronate (FOSAMAX) 70 MG tablet Take 1 tablet by mouth every 7 days. 04/19/19 23 Active furosemide (LASIX) 20 MG tablet Take 1 tablet by mouth daily. 04/03/19 23 Active traMADol (ULTRAM) 50 MG tablet Take 1 tablet by mouth as needed. 03/18/19 23 Active Active Problems Problem Noted Date Diagnosed Date Hypothyroidism 03/28/2014 Primary hypertension 03/28/2014 Family History Medical History Relation Comments Stroke Father Hypertension Mother Relation Status Comments Father Mother Social History Tobacco Use Types Packs/Day Years Used Date Smoking Tobacco: Never Smokeless Tobacco: Never Tobacco Cessation:Counseling Given: Not Answered Alcohol Use Standard Drinks/Week Comments Never 0 (1 standard drink = 0.6 oz pur e alcohol) AUDIT-C Answer Date Recorded Q1: How often do you have a drink containing alc ohol? Never 04/11/2020 Average Number of Drinks Not on file 021 Frequency of Binge Drinking Not on file 03/20 PHQ-2 Answer Date Recorded PHQ-2 Score - If the patient scores above 3, please move on to questions 3-9 0 07/09/2021 Comments Unknown Sex and Gender Information Value Date Recorded Sex Assigned at Not on file Legal Sex Female 10:24 PM CDT Gender Identity Not on file Sexual Orientation Not on file Last Filed Vital Signs Vital Sign Reading Time Taken Comments Blood Pressure 124/74 04/22/2022 4:26 PM ADMITTED ATTORNEYS Pulse 66 04/22/2022 2:00 PM ADMITTED ATTORNEYS Temperature 36.2 ??C (97.2 ??F) 04/22/2022 2:25 PM CS T Respiratory Rate 20 04/22/2022 4:26 PM ADMITTED ATTORNEYS Oxygen Saturation 93% 04/22/2022 4:26 PM ADMITTED ATTORNEYS Inhaled Oxygen Concentration - - Weight 105.2 kg (232 lb) 04/22/2022 8:10 AM ADMITTED ATTORNEYS Height 170.2 cm (5' 7 ) 04/22/2022 8:10 AM ADMITTED ATTORNEYS Body Mass Index 36.34 04/22/2022 8:10 AM ADMITTED ATTORNEYS Plan of Treatment Health Maintenance Due Date Last Done Comments Zoster Vaccines (1 of 2) 1990 Annual Medicare Wellness Visit 2005 Dexa Scan (General) 2005 DTaP, Tdap and Td Vaccines (1 - Tdap) 09/14/2007 09/13/2007 RSV Immunization or 60+ Years (1 - 1-dose 75+ series) 07/16/2015 Pneumococcal Vaccine: 65+ Years (2 of 2 - PPSV23 or PCV20) 12/29/2015 12/28/2014 COVID-19 Vaccine ( season) 2023 01/15/2021, 05/21/2020, 04/12/2020 Influenza Adult (#1) 2023 11/26/2017, 01/05/2017, 12/05/2015, Additional history exists Meningococcal B Vaccine Aged Out No l onger eligible based on patient's age to complete this topic Meningococcal Vaccine Aged Out No nayan conrad eligible based on patient's age to complete this topic RSV Immunizations Under 20 Months Aged Out No longer eligible based on patient's age to complete this topic Medical Devices Implanted Type Area Note Keeper Device Identifier Shelf Expiration Date Model / Serial / Lot Cement Bone Biomet 40gm - [id number] Implanted:Qty: 1 on 04/17/2020 by Anish San MD at [facility] Cement Implant Right: Knee [employer] INC 09/15/2024 [id number] / / [id number] Cement Bone Biomet 40gm - [id number] Implanted:Qty: 1 on 04/17/2020 by Anish San MD at [facility] Cement Implant Right: Knee [employer] 09/15/2024 [id number] / / [id number] Hip Components Hip Components Description:LTHR Stem Extension Court Fluted 10 X 130mm - [id number] Implanted:Qty: 1 on 04/17/2020 by Anish San MD at [facility] Hip Components Right: Knee COURT [employer] [id number] 01/02/2030 [id number] / / [id number] Shell Acetabular Court Biomet Osseoti G7 4 Hole 56mm F - [id number] Implanted:Qty: 1 on 04/22/2022 by Anish San MD at [facility] Hip Components Right: Hip [employer] [id number] 12/30/2031 [id number] / / [id number] Knee Components Knee Components Description:LTKR Femur Court Persona Cr Narrow Size 11 Right - [id number] Implanted:Qty: 1 on 04/17/2020 by Anish San MD at [facility] Knee Components Right: Knee COURT [employer] [id number] 06/15/2028 [id number] / / [id number] Lens Lens Description:yessy eye IOL Component Ptlr 32mm Vivacit-E Alply Kn - [id number] Implanted:Qty: 1 on 04/17/2020 by Anish San MD at [facility] Patella Right: Knee COURT [employer] [id number] 11/20/2024 [id number] / / [id number] Screw Court Bone 30mm - [id number] Implanted:Qty: 1 on 04/22/2022 by Anish San MD at [facility] Screw Right: Hip [employer] [id number] 02/13/2032 [id number] / / [id number] Tibia Stemmed Base Court Persona Size F Right - [id number] Implanted:Qty: 1 on 04/17/2020 by Anish San MD at [facility] Right: Knee [employer] [id number] 11/01/2029 [id number] / / [id number] Articular Surface Implanted:Qty: 1 on 04/17/2020 by Anish San MD at [facility] Right: Knee COURT [employer] [id number] 10/15/2024 04-2384-186- 11 / / [id number] Acetabular System Dual Mobility Acetabular Liner Neutral 44mm F Implanted:Qty: 1 on 04/22/2022 by Anish San MD at [facility] Right: Hip [employer] [id number] 02/25/2032 [id number] / / [id number] Avenir Complete Hip System Femoral Stem Cementless Collared Standard Offset 01/29 Taper Size 7 Implanted:Qty: 1 on 04/22/2022 by Anish San MD at [facility] Right: Hip COURT [employer] [id number] 10/12/2026 [id number] / / [id number] Dual Mobility Vivacit-E Polyethylene 28 X 44 Mm Size F Implanted:Qty: 1 on 04/22/2022 by Anish San MD at [facility] Right: Hip COURT [employer] [id number] 01/21/2027 [id number] / / [id number] Biolox Option, Head, L, 28/+3.5, Taper 14 Implanted:Qty: 1 on 04/22/2022 by Anish San MD at [facility] Right: Hip COURT INC [id number] 11/28/2031 39-3602-324- 03 / / [id number] Explanted Type Area Note Keeper Device Identifier Shelf Expiration Date Model / Serial / Lot Pin Guide Itst Threaded Court - [id number] Explanted:Qty: 1 on 04/17/2020 by Anish San MD at [facility] Pin Right: Knee [employer] 02/28/[id number] / / [id number] Pin Fixation Flute L80 Mm Od3.2 Mm Sterile Roberto - [id number] Explanted:Qty: 1 on 04/17/2020 by Anish San MD at [facility] Pin Right: Knee [employer] 03/15/[id number] / / [id number] Patella Reaming System, Patella Reamer Blade With Structural Test Engineer Hole Explanted:Qty: 1 on 04/17/2020 by Anish San MD at [facility] Right: Knee COURT INC 02/20/2030 / / [id number] 3.2 Flexible Made Drill Bit Explanted:Qty: 1 on 04/22/2022 by Anish San MD at [facility] Right: Hip COURT INC [id number] / / Additional Health Concerns Infection Onset Date Last Indicated MRSA Comment:04/13/22 nasal swab at [facility] per PHILIP (JJ) 04/15/2022 04/15/2022 Insurance MEDICARE [facility] Advance Directives * Full Code (Latest Code Status on File) Date Activated Date Inactivated Comments 04/22/2022 2:24 PM 04/22/2022 6:33 PM * Full Code Date Activated Date Inactivated Comments 04/17/2020 3:57 PM 04/18/2020 6:19 PM Care Teams Financial Service Representative Relationship Specialty Start Date End Date Chary Singh MD [address] [place] [id number] PCP - General FAMILY PRACTICE 12/06/18
--- OUTSIDE RECORDS SUMMARY | 2024-03-23 13:03 | XMS_ITS | CONTINUITY OF CARE DOCUMENT ---
Author Name nikkie lundy Address Unknown Organization [facility] Address [address] [place] [address] Phone [phone] Care Team Providers Care Automobile Mechanic Apprentice Name Role Phone Nadine Bhardwaj MD Unavailable [phone] SABINE OSCAR MD Unavailable [phone] SABINE OSCAR MD Unavailable PROBLEMS Condition Status Date Provider Notes Shortness of breath active Nadine Jones HX of Pulmonary embolism - O n coumadin - S/P IVC Filter active Nadine Bhardwaj MD Hypothyroidism active Nadine Bhardwaj MD HTN essential active Nadine Bhardwaj MD CHFpEF active Nadine Bhardwaj MD Spinal stenosis active Nadine Bhardwaj MD Neuropathy active Nadine Bhardwaj MD Anemia active Nadine Bhardwaj MD vitamin B12 deficiency anemia active Jono Bhardwaj MD ENCOUNTERS Date Type Provider Location Encounter Diag nosis 2 - 8 In-person encounter Office Visit Nadine Seth Office 4 - 2 In-person encounter Office Visit Nadine Bhardwaj MD [facility] Office 0 - 3 In-person encounter Office Visit Nadine Seth Office Shortness of breathHX of Pulmonary embolism - On coumadin - S/P IVC FilterHypothyroidismHTN essentialCHFpEFSpinal stenosisNeuropathyAnemiavitamin B12 deficiency anemia VITAL SIGNS Date Observation Value Provider blood pressure, diastolic 70 mm[Hg] Pedro Bhardwaj MD blood pressure, systolic 124 mm[Hg] Alfredito Bhardwaj MD respiratory rate E&M 16 /min Eris Bhardwaj MD oxygen saturation, oximetry 98 % Nadine Bhardwaj MD pulse rate 63 /min Nadine Bhardwaj MD Body Mass Index (Ratio) 34.97 kg/m2 Zackery Bhardwaj MD weight E&M 230 [lb_av] Nadine Bhardwaj MD respiratory rate E&M 16 /min Eris Bhardwaj MD Body Mass Index (Ratio) 32.99 kg/m2 Zackery Bhardwaj MD oxygen saturation, oximetry 99 % Nadine Bhardwaj MD blood pressure, diastolic 84 mm[Hg] Pedro Bhardwaj MD blood pressure, systolic 140 mm[Hg] Alfredito Bhardwaj MD pulse rate 66 /min Nadine Bhardwaj MD weight E&M 217 [lb_av] Nadine Bhardwaj MD height E&M 68 [in_i] Nadine Bhardwaj MD ALLERGIES Allergy Name Onset Date Reaction Criticality Status GRALISE High Criticality active LYRICA High Criticality active HISTORY OF MEDICATION USE Medication Status Instructions Dates Provider Indications Com ments HYDROCHLOROTHIAZIDE 25 MG ORAL TABLET active 1 tablet daily Nadine Bhardwaj MD MONTELUKAST SODIUM 10 MG ORAL TABLET active 1 tablet daily Nadine Bhardwaj MD GABAPENTIN 300 MG ORAL CAPSULE active 1 tablet daily Nadine Bhardwaj MD PANTOPRAZOLE SODIUM 40 MG ORAL TABLET DELAYED RELEASE active 1 tablet daily Nadine Bhardwaj MD ATENOLOL 25 MG ORAL TABLET active 1 tablet daily Nadine Bhardwaj MD AMLODIPINE BESYLATE 10 MG ORAL TABLET active 1 tablet daily Nadine Bhardwaj MD WARFARIN SODIUM 2 MG ORAL TABLET active 1 tablet daily Nadine Bhardwaj MD LORAZEPAM 1 MG ORAL TABLET active 1 tablet daily Nadine Bhardwaj MD PAROXETINE HCL 20 MG ORAL TABLET active 1 tablet daily Nadine Bhardwaj MD LEVOTHYROXINE SODIUM 150 MCG ORAL TABLET active 1 tablet daily Nadine Bhardwaj MD SPIRONOLACTONE 50 MG ORAL TABLET active 1 tablet daily aNdine Bhardwaj MD SOCIAL HISTORY Date Observation Value Provider smoking status Unknown if ever smoked Alfredito Bhardwaj MD social history reviewed E&M revi ewed - no changes required Nadine Bhardwaj MD social history E&M Marital Statu s: C hildren: 3 O ccupation: Retired R egular Exercise - no Smoking History: U nknown if patient has ever smoked. Nadine Bhardwaj MD smoking status Unknown if ever smoked Alfredito Bhardwaj MD social history reviewed E&M revi ewed - no changes required Nadine Bhardwaj MD social history reviewed E&M revi ewed - no changes required Nadine Bhardwaj MD social history E&M Marital Statu s: C hildren: 3 O ccupation: Retired R egular Exercise - no Nadine Bhadrwaj MD FAMILY HISTORY Family Member Condition Father Family History Unkno wn INSURANCE PROVIDERS Payer name Policy type / Coverage type [place] red alliance party ID [employer] [place] Commercial insurance compan y [id number] [place] Medicare [id number] TREATMENT PLAN Date Name Performer Cardiology faxed on 11/15/14 1003 am:On pain medications. Nadine Bhardwaj MD Cardiology faxed on 11/15/14 1003am:Clinically compensated. Continues on atenolol, amlodipine, and aldactone. Nadine Bhardwaj MD Cardiology faxed on 11/15/14 1003am:Symptoms remain unchanged. Seems to respond to inhalers which she continues. Nadine Bhardwaj MD Cardiology faxed on 11/15/14 1003am:On replacement therapy. Nadine Bhardwaj MD Cardiology faxed on 11/15/14 1003am:Blood pressure is stable. Nadine Bhardwaj MD Cardiology faxed on 11/15/14 1003am:On gabapentin and paroxetine. Nadine Bhardwaj MD faxed to PCP: H er updated medication list for this problem includes: Hydrochlorothiazide 25 Mg Oral Tabs (Hydrochlorothiazide) ..... 1 tablet daily Atenolol 25 Mg Oral Tabs (Atenolol) ..... 1 tablet daily Amlodipine Besylate 10 Mg Oral Tabs (Amlodipine besylate) ..... 1 tablet daily Spironolactone 50 Mg Oral Tabs (Spironolactone) ..... 1 tablet daily Nadine Bhardwaj MD faxed to PCP Nadine Jones faxed to PCP Nadine Jones faxed to PCP: H er updated medication list for this problem includes: Hydrochlorothiazide 25 Mg Oral Tabs (Hydrochlorothiazide) ..... 1 tablet daily Atenolol 25 Mg Oral Tabs (Atenolol) ..... 1 tablet daily Amlodipine Besylate 10 Mg Oral Tabs (Amlodipine besylate) ..... 1 tablet daily Warfarin Sodium 2 Mg Oral Tabs (Warfarin sodium) ..... 1 tablet daily Spironolactone 50 Mg Oral Tabs (Spironolactone) ..... 1 tablet daily Nadine Bhardwaj MD faxed to PCP: H er updated medication list for this problem includes: Hydrochlorothiazide 25 Mg Oral Tabs (Hydrochlorothiazide) ..... 1 tablet daily Atenolol 25 Mg Oral Tabs (Atenolol) ..... 1 tablet daily Amlodipine Besylate 10 Mg Oral Tabs (Amlodipine besylate) ..... 1 tablet daily Spironolactone 50 Mg Oral Tabs (Spironolactone) ..... 1 tablet daily Nadine Bhardwaj MD faxed to PCP: Allyssa noel updated medication list for this problem includes: Hydrochlorothiazide 25 Mg Oral Tabs (Hydrochlorothiazide) ..... 1 tablet daily Atenolol 25 Mg Oral Tabs (Atenolol) ..... 1 tablet daily Amlodipine Besylate 10 Mg Oral Tabs (Amlodipine besylate) ..... 1 tablet daily Spironolactone 50 Mg Oral Tabs (Spironolactone) ..... 1 tablet daily Orders: S MIGUEL - Rajinder ([id number]) Nadine Bhardwaj MD Date Name AURELIANO - Rajinder
== END 2024-03-23 11:27 | disposition home or self-care (01) ==
LOC: CHSCARD 11:29
PROVIDERS: PCP Family Medicine; Visit Provider Podiatrist Foot & Ankle Surgery
DX: R03.0 Elevated blood-pressure reading, without diagnosis of hypertension (principal); I45.19 Other right bundle-branch block
CPT/HCPCS: 93005

== ENCOUNTER 2024-06-07 11:54 | Outpatient (CLI) | payer MEDICARE, SELFPAY ==
[2024-06-07 12:10] LABS: Basophils Absolute Auto 0.03 K/mm3 (0.00-0.10); Basophils Percent Auto 0.5 % (0.0-1.0); Eosinophils Absolute Auto 0.15 K/mm3 (0.02-0.50); Eosinophils Percent Auto 2.5 % (1.0-6.0); Hematocrit 43.8 % (35.0-42.0); Hemoglobin 14.1 g/dL (11.7-13.8); Immature Granulocyte Absolute 0.03 K/mm3 (0.00-0.00); Immature Granulocyte Percent A 0.5 % (0.0-0.0); Lymphocytes Percent Auto 27.8 % (18.0-42.0); Mean Corpuscular HGB Conc 32.2 g/dL (32-36); Mean Corpuscular Hemoglobin 31.7 pg (27.0-31.0); Mean Corpuscular Volume 98.4 fL (78.0-102.0); Mean Platelet Volume 8.9 fl (9.2-11.8); Monocytes Absolute Auto 0.36 K/mm3 (0.10-0.90); Monocytes Percent Auto 5.9 % (2.0-11.0); Neutrophils Absolute Auto 3.84 K/mm3 (1.70-7.20); Neutrophils Percent Auto 62.8 % (50.0-70.0); Platelet Count Result 222 K/mm3 (150-420); Red Blood Count 4.45 M/mm3 (4.20-5.40); Red Cell Distribution Width 13.5 % (11.6-14.4); White Blood Count 6.1 K/mm3 (4.8-10.8)
[2024-06-07 12:23] LABS: Prothrombin Time 20.3 Seconds (9.50-12.1)
[2024-06-07 13:08] LABS: Alanine Aminotransferase 22 U/L (14-59); Albumin Level 3.8 g/dL (3.4-5.0); Alkaline Phosphatase 93 U/L (46-116); Anion Gap 6 mmol/L (4-12); Aspartate Amino Transferase 23 U/L (15-37); Bilirubin,Total 0.4 mg/dL (0.00-1.00); Blood Urea Nitrogen 23 mg/dL (7-18); Carbon Dioxide 33 mmol/L (21-32); Chloride 103 mmol/L (98-108); Estimated Glomerular Filt Rate 48; Free T4 Free Thyroxine 1.36 ng/dL (0.76-1.46); Glucose 99 mg/dL (70-99); Osmolality Calculated 297 mOsm/kg (285-295); Potassium 3.9 mmol/L (3.5-5.1); Sodium 142 mmol/L (136-145); Thyroid Stimulating Hormone 5.14 uIU/mL (0.36-3.74); Total Protein 7.3 g/dL (6.4-8.2); Vitamin B12 449 pg/mL (193-986)
--- OUTSIDE RECORDS SUMMARY | 2024-06-07 13:53 | XMS_ITS | CONTINUITY OF CARE DOCUMENT ---
Author Name nikkie lundy Address Unknown Organization [facility] Address [address] [place] [address] Phone [phone] Care Team Providers Care Franchise Sales Director Name Role Phone Nadine Bhardwaj MD Unavailable SABINE OSCAR MD Unavailable SABINE OSCAR MD Unavailable [phone] PROBLEMS Condition Status Date Provider Notes Shortness of breath active Nadine Jones HX of Pulmonary embolism - O n coumadin - S/P IVC Filter active Nadine Bhardwaj MD vitamin B12 deficiency anemia active Jono Bhardwaj MD Anemia active Nadine Bhardwaj MD Neuropathy active Nadine Bhardwaj MD Spinal stenosis active Nadine Bhardwaj MD CHFpEF active Nadine Bhardwaj MD HTN essential active Nadine Bhardwaj MD Hypothyroidism active Nadine Bhardwaj MD ENCOUNTERS Date Type Provider Location Encounter Diag nosis 2 - 8 In-person encounter Office Visit Nadine Seth Office 4 - 2 In-person encounter Office Visit Nadine Bhardwaj MD [facility] Office 0 - 3 In-person encounter Office [...] active 1 tablet daily Nadine Bhardwaj MD SOCIAL HISTORY Date Observation Value [...] Retired R egular Exercise - no Nadine Bhardwaj MD FAMILY HISTORY Family Member Condition Father Family History Unkno wn INSURANCE PROVIDERS Payer name Policy type / Coverage type [place] red democrat ID [employer] [place] Commercial insurance compan y [id number] [place] Medicare [id number] TREATMENT PLAN Date Name Performer Cardiology faxed [...] tablet daily Orders: S MIGUEL - Rajinder ([id number]) Nadine Bhardwaj MD Date Name AURELIANO - Rajinder
--- OUTSIDE RECORDS SUMMARY | 2024-06-07 13:53 | XMS_ITS | Clinical Summary ---
Author Organization [facility] Address [address] [place] [address] Care Team Providers Care Fish Peddler Name Role Phone Chary Singh MD Primary Care Provider [phone] Allergies Active Allergy Reactions Criticality Noted Date [...] Comments Blood Pressure 124/74 04/22/2022 4:26 PM ACADEMIC SUPPORT COORDINATOR Pulse 66 04/22/2022 2:00 PM ACADEMIC SUPPORT COORDINATOR Temperature 36.2 C (97.2 F) 04/22/2022 2:25 PM ACADEMIC SUPPORT COORDINATOR Respiratory Rate 20 04/22/2022 4:26 PM ACADEMIC SUPPORT COORDINATOR Oxygen Saturation 93% 04/22/2022 4:26 PM ACADEMIC SUPPORT COORDINATOR Inhaled Oxygen Concentration - - Weight 105.2 kg (232 lb) 04/22/2022 8:10 AM ACADEMIC SUPPORT COORDINATOR Height 170.2 cm (5' 7 ) 04/22/2022 8:10 AM ACADEMIC SUPPORT COORDINATOR Body Mass Index 36.34 04/22/2022 8:10 AM ACADEMIC SUPPORT COORDINATOR Plan of Treatment Health Maintenance Due Date Last Done Comments Zoster Vaccines (1 of 2) 1990 Annual Medicare Wellness Visit 2005 Dexa Scan (General) 2005 DTaP, Tdap and Td Vaccines ( 1 - Tdap) 09/14/2007 09/13/2007 RSV Immunization or 60+ Years (1 - 1-dose 75+ series) 07/16/2015 Pneumococcal Vaccine: 50+ Years (2 of 2 - PPSV23) 12/29/2015 12/28/2014 COVID-19 Vaccine (2023-2 5 season) 2023 01/15/2021, 05/21/2020, 04/12/2020 Meningococcal B Vaccine Aged Out No l onger eligible based on patient's age to complete this topic Meningococcal Vaccine Aged Out No nayan conrad eligible based on patient's age to complete this topic RSV Immunizations Under 20 Months Aged Out No longer eligible b ased on patient's age to complete this topic Medical Devices Implanted Type Area Residential Support Worker Device Identifier Shelf Expiration Date Model / Serial / Lot Cement Bone Biomet 40gm - [id number] Implanted:Qty: 1 on 04/17/2020 by Anish San MD at [facility] Cement Implant Right: Knee [employer] 09/15/2024 [id number] / / [id number] Cement Bone Biomet 40gm - [id number] Implanted:Qty: 1 on 04/17/2020 by Anish San MD at [facility] Cement Implant Right: Knee [employer] 09/15/2024 [id number] / / [id number] Hip Components Hip Components Description:LTHR Stem Extension Court Fluted 10 X 130mm - [id number] Implanted:Qty: 1 on 04/17/2020 by Anish San MD at [facility] Hip Components Right: Knee COURT [employer] [id number] 01/02/2030 [id number] / / [id number] Shell Acetabular Court Biomet Osseoti G7 4 Hole 56mm F - [id number] Implanted:Qty: 1 on 04/22/2022 by Anish San MD at [facility] Hip Components Right: Hip [employer] [id number] 12/30/2031 [id number] / / [id number] Knee Components Knee Components Description:LTKR Femur Court Persona Cr Narrow Size 11 Right - [id number] Implanted:Qty: 1 on 04/17/2020 by Anish San MD at [facility] Knee Components Right: Knee COURT [employer] [id number] 06/15/2028 [id number] / / [id number] Lens Lens Description:yessy eye IOL Component Ptlr 32mm Vivacit-E Alply Kn - [id number] Implanted:Qty: 1 on 04/17/2020 by Anish San MD at [facility] Patella Right: Knee [employer] [id number] 11/20/2024 [id number] / / [id number] Screw Court Bone 30mm - [id number] Implanted:Qty: 1 on 04/22/2022 by Anish San MD at [facility] Screw Right: Hip [employer] [id number] 02/13/2032 [id number] / / [id number] Tibia Stemmed Base Court Persona Size F Right - [id number] Implanted:Qty: 1 on 04/17/2020 by Anish San MD at [facility] Right: Knee [employer] [id number] 11/01/2029 [id number] / / [id number] Articular Surface Implanted:Qty: 1 on 04/17/2020 by Anish San MD at [facility] Right: Knee COURT [employer] [id number] 10/15/2024 [id number] / / [id number] Acetabular System Dual Mobility Acetabular Liner Neutral 44mm F Implanted:Qty: 1 on 04/22/2022 by Anish San MD at [facility] Right: Hip [employer] [id number] 02/25/2032 [id number] / / [id number] Avenir Complete Hip System Femoral Stem Cementless Collared Standard Offset 01/29 Taper Size 7 Implanted:Qty: 1 on 04/22/2022 by Anish San MD at [facility] Right: Hip COURT [employer] [id number] 10/12/2026 [id number] / / [id number] Dual Mobility Vivacit-E Polyethylene 28 X 44 Mm Size F Implanted:Qty: 1 on 04/22/2022 by Anish San MD at [facility] Right: Hip COURT [employer] [id number] 01/21/2027 [id number] / / [id number] Biolox Option, Head, L, 28/+3.5, Taper /14 Implanted:Qty: 1 on 04/22/2022 by Anish San MD at [facility] Right: Hip COURT [employer] [id number] 11/28/2031 [id number] / / [id number] Explanted Type Area Residential Support Worker Device Identifier Shelf Expiration Date Model / Serial / Lot Pin Guide Itst Threaded Court - [id number] Explanted:Qty: 1 on 04/17/2020 by Anish San MD at [facility] Pin Right: Knee [employer] 02/28/2025 [id number] / / [id number] Pin Fixation Flute L80 Mm Od3.2 Mm Sterile Roberto - [id number] Explanted:Qty: 1 on 04/17/2020 by Anish San MD at [facility] Pin Right: Knee [employer] 03/15/[id number] / / [id number] Patella Reaming System, Patella Reamer Blade With Manager Administration Hole Explanted:Qty: 1 on 04/17/2020 by Anish San MD at [facility] Right: Knee COURT [employer] 02/20/2030 / / [id number] 3.2 Flexible Made Drill Bit Explanted:Qty: 1 on 04/22/2022 by Anish San MD at [facility] Right: Hip COURT [employer] [id number] / / Additional Health Concerns Infection Onset 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 per PHILIP (FELA) 04/15/2022 04/15/2022 Insurance MEDICARE [facility] Advance Directives * Full Code (Latest Code Status on File) Date Activated Date Inactivated Comments 04/22/2022 2:24 PM 04/22/2022 6:33 PM * Full Code Date Activated Date Inactivated Comments 04/17/2020 3:57 PM 04/18/2020 6:19 PM Care Teams Fish Peddler Relationship Specialty Start Date End Date Chary Singh MD [address] [place] [address] PCP - General FAMILY PRACTICE 12/06/18
== END 2024-06-07 11:55 | disposition home or self-care (01) ==
LOC: CHSLAB 11:59
PROVIDERS: PCP Family Medicine
DX: Z79.01 Long term (current) use of anticoagulants (principal); E03.9 Hypothyroidism, unspecified; D51.0 Vitamin B12 deficiency anemia due to intrinsic factor deficiency
CPT/HCPCS: 36415; 80053; 82607; 84439; 84443; 85025; 85610

== ENCOUNTER 2024-07-08 11:59 | Outpatient (RCR) | payer MEDICARE, SELFPAY ==
[2024-04-19 15:55] LABS: INR 1.3; Prothrombin Time 14.1 Seconds (9.50-12.1)
[2024-04-27 10:12] LABS: INR 1.7; Prothrombin Time 18.2 Seconds (9.50-12.1)
[2024-05-07 12:54] LABS: INR 3.4; Prothrombin Time 33.6 Seconds (9.50-12.1)
[2024-05-25 10:57] LABS: INR 3.7; Prothrombin Time 36.4 Seconds (9.50-12.1)
[2024-06-23 12:15] LABS: Basophils Absolute Auto 0.02 K/mm3 (0.00-0.10); Basophils Percent Auto 0.3 % (0.0-1.0); Eosinophils Absolute Auto 0.16 K/mm3 (0.02-0.50); Eosinophils Percent Auto 2.6 % (1.0-6.0); Hematocrit 44.6 % (35.0-42.0); Hemoglobin 14.6 g/dL (11.7-13.8); Immature Granulocyte Absolute 0.01 K/mm3 (0.00-0.00); Immature Granulocyte Percent A 0.2 % (0.0-0.0); Lymphocytes Absolute Auto 1.67 K/mm3 (1.10-4.50); Lymphocytes Percent Auto 26.9 % (18.0-42.0); Mean Corpuscular HGB Conc 32.7 g/dL (32-36); Mean Corpuscular Hemoglobin 31.8 pg (27.0-31.0); Mean Corpuscular Volume 97.2 fL (78.0-102.0); Mean Platelet Volume 9.1 fl (9.2-11.8); Monocytes Percent Auto 6.5 % (2.0-11.0); Neutrophils Absolute Auto 3.94 K/mm3 (1.70-7.20); Neutrophils Percent Auto 63.5 % (50.0-70.0); Platelet Count Result 220 K/mm3 (150-420); Red Blood Count 4.59 M/mm3 (4.20-5.40); Red Cell Distribution Width 13.5 % (11.6-14.4); White Blood Count 6.2 K/mm3 (4.8-10.8)
[2024-06-23 12:28] LABS: Prothrombin Time 20.9 Seconds (9.50-12.1)
[2024-07-08 13:05] LABS: INR 2.3; Prothrombin Time 23.2 Seconds (9.50-12.1)
== END 2024-07-18 23:59 | disposition home or self-care (01) ==
LOC: CHSLAB 11:59
PROVIDERS: PCP Family Medicine; Visit Provider Family Medicine
DX: Z51.81 Encounter for therapeutic drug level monitoring (principal); Z79.01 Long term (current) use of anticoagulants
CPT/HCPCS: 36415; 85025; 85610

== ENCOUNTER 2025-01-04 10:50 | Outpatient (CLI) | payer MEDICARE, SELFPAY ==
[2025-01-04 11:22] LABS: INR 1.6; Prothrombin Time 16.5 Seconds (9.50-12.1)
[2025-01-04 11:36] LABS: Free T4 Free Thyroxine 1.90 ng/dL (0.78-2.19)
[2025-01-04 11:49] LABS: Thyroid Stimulating Hormone 7.260 uIU/mL (0.465-4.680)
== END 2025-01-04 10:51 | disposition home or self-care (01) ==
LOC: CHSLAB 10:55
PROVIDERS: PCP Family Medicine; Visit Provider Nurse Practitioner Family
DX: E03.9 Hypothyroidism, unspecified (principal); R79.89 Other specified abnormal findings of blood chemistry; Z79.01 Long term (current) use of anticoagulants
CPT/HCPCS: 36415; 84439; 84443; 85610